=== PATIENT | female | born 1935 | race Caucasian/White ===

== ENCOUNTER 2016-11-12 15:10 | Outpatient (CLI) | payer MEDICARE, OTHER | END 2016-11-12 15:11 | DX: D50.9 Iron deficiency anemia, unspecified (principal); L65.9 Nonscarring hair loss, unspecified; E03.9 Hypothyroidism, unspecified ==

== ENCOUNTER 2021-02-10 11:38 | Outpatient (CLI) | payer MEDICARE, OTHER | END 2021-02-10 11:39 | disposition critical access hospital (66) | LOC: EMS 11:38 | DX: R53.1 Weakness (principal); R06.02 Shortness of breath | CPT/HCPCS: A0425; A0429 ==

== ENCOUNTER 2021-02-10 12:01 | Emergency (ER) | payer MEDICARE, OTHER ==
--- OUTSIDE RECORDS SUMMARY | 2021-02-10 12:42 | EXTERNAL MEDICAL SUMMARY RPT | Continuity of Care Document ---
:1935 Demographics Phone Unavailable Preferred Language Mauritian Marital Status Unknown Latter Day Affiliation Unknown Race Unknown Ethnic Group Unknown Author Organization [facility] Address [address] [place] [address] Phone Care Team Providers Name Role Phone Scheidt Unavailable Unavailable Procedures date description facility 20210129 [facility] Vital Signs date measurement value source 20210129 weight_standard 103.99 lb 20210129 weight_metric 47.17 kg 20210129 temperature_standard 97.7 F 20210129 temperature_metric 36.5 C 20210129 respiration_rate 16 /min 20210129 heart_rate 77 /min 20210129 BP_systolic 188 mm[Hg] 20210129 BP_diastolic 70 mm[Hg]
[2021-02-10 13:33] LABS: BASOPHILS # (AUTO) 0.1 10^3/uL (0.0-0.1); BASOPHILS % (AUTO) 1.1 %; EOSINOPHILS # (AUTO) 0.2 10^3/uL (0.0-0.7); EOSINOPHILS % (AUTO) 2.8 %; HGB - HEMOGLOBIN 9.9 g/dL (12.0-16.0); LYMPHOCYTES # (AUTO) 1.1 10^3/uL (1.5-3.5); LYMPHOCYTES % (AUTO) 19.6 %; MEAN CORPUSCULAR HEMOGLOBIN 28.7 pg (27.0-31.0); MEAN CORPUSCULAR VOLUME 95.7 fL (81.0-99.0); MEAN PLATELET VOLUME 8.6 fL (7.9-10.8); MONOCYTES # (AUTO) 0.5 10^3/uL (0.0-1.0); NEUTROPHILS # (AUTO) 3.8 10^3/uL (1.5-6.6); NEUTROPHILS % (AUTO) 67.3 %; PLT - PLATELET COUNT 323 10^3/uL (130-450); RED BLOOD COUNT 3.45 10^6/uL (4.20-5.40); RED CELL DISTRIBUTION WIDTH 13.9 % (12.0-15.0); WHITE BLOOD COUNT 5.7 x10^3/uL (4.8-10.8)
[2021-02-10] MEDS ORDERED: oxyCODONE 5 MG TABLET PO STA (13:33)
--- NOTE | 2021-02-10 13:35 | ED Physician Documentation ---
PD HPI DYSPNEA - Stated complaint Stated Complaint: SOA/WEAKNESS - Chief complaint Chief Complaint: Resp - History obtained from History obtained from: Patient, Family - History of Present Illness Timing - onset: How many days ago (3) Timing - onset during: Rest Timing - duration: Days (3) Timing - details: Gradual onset Pain level max: 0 Pain level now: 0 Improved by: Rest Worsened by: Exertion Associated symptoms: Cough (dry). No: Fever, Hemoptysis, Wheezing, Chest pain / discomfort, Palpitations, Diaphoresis, Bilateral edema - Additional information Additional information: Patient is an 85-year-old female who presents to the emergency department stating that she has felt generally weak for the past 3 days. She moved into a new care facility this week. She is worse with walking, better with rest. Lynn short of breath today. States her ankles are more swollen than usual. History of an AK 1 year ago at [place] in [place]. She states she has had a mild cough. Has had both Covid vaccinations. No fevers. No chills. No abdominal pain. No nausea, vomiting, diarrhea. No chest pain. No urinary symptoms. Does occasionally have urinary incontinence. She is here with her POA. She states that she has chronic back pain which is unchanged. No history of COPD or asthma Review of Systems Ten Systems: 10 systems reviewed and negative Constitutional: denies: Fever, Chills Nose: denies: Rhinorrhea / runny nose, Congestion Throat: denies: Sore throat Cardiac: denies: Chest pain / pressure, Palpitations, Calf pain GI: denies: Nausea, Vomiting, Diarrhea Skin: denies: Rash Musculoskeletal: reports: Back pain (chronic and unchanged). denies: Neck pain Neurologic: denies: Headache PD PAST MEDICAL HISTORY - Past Medical History Past Medical History: Yes Cardiovascular: Hypertension Respiratory: None Neuro: None Endocrine/Autoimmune: None GI: None SUPERVISOR DATA PROCESSING: None : None HEENT: None Psych: Depression, Anxiety Musculoskeletal: Osteoarthritis, Osteoporosis, Osteopenia, Fatigue, Scoliosis, Chronic back pain Derm: None - Past Surgical History Past Surgical History: Yes Ortho: Spine surgery, Other - Present Medications Home Medications: Ambulatory Orders Medication Instructions Recorded Confirmed Liothyronine Sodium [Triostat] 10 mcg PO DAILY 01/02/15 02/17/16 lisinopriL [Lisinopril] 10 mg PO DAILY 01/02/15 02/17/16 Levothyroxine [Synthroid] 50 mcg ORAL DAILY 07/30/15 02/17/16 oxyCODONE [Roxicodone] 7.5 mg ORAL Q4H PRN 07/30/15 02/17/16 - Allergies Allergies/Adverse Reactions: Allergies Allergy/AdvReac Type Severity Reaction Status Date / Time carvedilol Allergy Unknown Verified 02/10/21 12:12 celecoxib [From Celebrex] Allergy Emesis Verified 02/17/16 09:34 erythromycin base Allergy Emesis Verified 02/17/16 09:34 sucralfate [From Carafate] Allergy Unknown Verified 02/10/21 12:12 trazodone Allergy Unknown Verified 02/10/21 12:12 - Social History Does the pt smoke?: No Smoking Status: Never smoker Does the pt drink ETOH?: No Does the pt have substance abuse?: No - Immunizations Immunizations are current?: No Immunizations: TDAP >10years/unknown, No immun - POLST Patient has POLST: No PD ED PE NORMAL - Vitals Vital signs reviewed: Yes - General General: Alert and oriented X 3, No acute distress, Well developed/nourished - HEENT HEENT: Atraumatic, PERRL, Ears normal, Moist mucous membranes, Pharynx benign - Neck Neck: Supple, no meningeal sign, No bony TTP - Cardiac Cardiac: RRR, Other (harsh systolic murmur) - Respiratory Respiratory: No respiratory distress, Clear bilaterally - Abdomen Abdomen: Soft, Non tender, Non distended - Back Back: No CVA TTP, No spinal TTP - Derm Derm: Warm and dry, No rash - Extremities Extremities: No tenderness to palpate, No calf tenderness / cord, Other (trace edema B LE) - Neuro Neuro: Alert and oriented X 3 - Psych Psych: Normal mood, Normal affect Results - Vitals Vitals: Vital Signs - 24 hr 02/10/21 02/10/21 12:07 15:54 Temperature 36.7 C 36.6 C Heart Rate 66 64 Respiratory 18 16 Rate Blood Pressure 164/84 H 148/86 H O2 Saturation 97 98 Oxygen O2 Source Room air - EKG (time done) 1205 Rate: Rate (enter#) (66) Rhythm: NSR [place]: Normal QRS: LVH Ischemia: Q waves (III, aVF), Other (LVH with repol) - Labs Labs: Laboratory Tests 02/10/21 02/10/21 02/10/21 12:24 13:24 13:24 WBC 5.7 RBC 3.45 L Hgb 9.9 L Hct 33.0 L MCV 95.7 MCH 28.7 MCHC 30.0 L RDW 13.9 Plt Count 323 MPV 8.6 Neut # (Auto) 3.8 Lymph # (Auto) 1.1 L [place] # (Auto) 0.5 Eos # (Auto) 0.2 Baso # (Auto) 0.1 Absolute Nucleated RBC 0.00 Nucleated RBC % 0.0 Sodium 137 Potassium 4.0 Chloride 93 L Carbon Dioxide 36 H Anion Gap 8.0 BUN 20 Creatinine 0.6 Estimated GFR (MDRD) 95 Glucose 120 H Calcium 9.9 Total Bilirubin 0.6 AST 22 ALT 27 Alkaline Phosphatase 87 Troponin I High Sens B-Natriuretic Peptide Total Protein 6.2 L Albumin 3.7 Globulin 2.5 Albumin/Globulin Ratio 1.5 Urine Color YELLOW Urine Clarity CLEAR Urine pH 8.0 H Ur Specific [place] 1.020 Urine Protein NEGATIVE Urine Glucose (UA) NEGATIVE Urine Ketones NEGATIVE Urine Occult Blood NEGATIVE Urine Nitrite NEGATIVE Urine Bilirubin NEGATIVE Urine Urobilinogen 0.2 (NORMAL) Ur Leukocyte Esterase NEGATIVE Ur Microscopic Review NOT INDICATED Urine Culture Comments NOT INDICATED 02/10/21 02/10/21 13:24 13:24 WBC RBC Hgb Hct MCV MCH MCHC RDW Plt Count MPV Neut # (Auto) Lymph # (Auto) [place] # (Auto) Eos # (Auto) Baso # (Auto) Absolute Nucleated RBC Nucleated RBC % Sodium Potassium Chloride Carbon Dioxide Anion Gap BUN Creatinine Estimated GFR (MDRD) Glucose Calcium Total Bilirubin AST ALT Alkaline Phosphatase Troponin I High Sens 7.7 B-Natriuretic Peptide 480 H Total Protein Albumin Globulin Albumin/Globulin Ratio Urine Color Urine Clarity Urine pH Ur Specific [place] Urine Protein Urine Glucose (UA) Urine Ketones Urine Occult Blood Urine Nitrite Urine Bilirubin Urine Urobilinogen Ur Leukocyte Esterase Ur Microscopic Review Urine Culture Comments - Rads (name of study) cxr Radiology: Prelim report reviewed, EMP read contemporaneously, See rad report (Slightly low lung volumes without evidence of an acute cardiopulmonary abnormality. ) PD MEDICAL DECISION MAKING - ED course Complexity details: reviewed results, re-evaluated patient, considered differential, d/w patient ED course: 85-year-old female with weakness. Does have a mild anemia, not enough to transfuse at this point. I do not have baseline blood work for her as she recently moved here from [place]. She does not know her normal blood work. We will have her recheck her hemoglobin with her doctor. The patient also did not finish her cardiac rehab from her AK last year because of Covid. Recommend that she restart physical therapy and rehab to increase her strength. She states that that did help when she felt like this last year. No significant lab abnormalities other than a almost 40-1 BUN to creatinine ratio, therefore IV fluids were given. Her BNP is mildly elevated as well, but no pulmonary edema and no significant swelling in the legs. Unknown what her baseline BNP is. No hypoxia. No respiratory distress. We will have her follow-up with her doctor for further care. Normal urinalysis. Patient counseled regarding signs and symptoms for which I believe and urgent re-evaluation would be necessary. Patient with good understanding of and agreement to plan and is comfortable going home at this time This document was made in part using voice recognition software. While efforts are made to proofread this document, sound alike and grammatical errors may o ccur. Departure - Departure Disposition: 01 Home, Self Care Clinical Impression: Weakness, Muscular deconditioning Condition: Good Instructions: ED Weakness UKO Follow-Up: AUNG DE LA FUENTE MD [Physician No Access] - Comments: It is recommended that you go back to physical therapy, you may need to start with water therapy. You are likely getting weaker from your deconditioning. Physical therapy will likely help this. Return if you worsen.
[2021-02-10 13:52] LABS: ALBUMIN 3.7 g/dL (3.2-5.5); ALBUMIN/GLOBULIN RATIO 1.5 (1.0-2.2); BILIRUBIN,TOTAL 0.6 mg/dL (0.2-1.0); CALCIUM 9.9 mg/dL (8.5-10.3); CREATININE 0.6 mg/dL (0.4-1.0); TOTAL PROTEIN 6.2 g/dL (6.7-8.2)
--- NOTE | 2021-02-10 13:59 | XRAY Report ---
PROCEDURE: Chest 1 View X-Ray INDICATIONS: dyspnea TECHNIQUE: One view of the chest was acquired. COMPARISON: None available at time of dictation FINDINGS: Surgical changes and devices: Overlying EKG wires. Lungs and pleura: The lungs are slightly hypoinflated causing prominence of bronchovascular markings. No focal consolidation, pneumothorax, or pleural effusion. Mediastinum: Mediastinal contours appear normal. Heart size is normal. Opacity of the inferior med iastinum likely representing hiatal hernia. Bones and chest wall: Remote left-sided rib fractures. Likely postsurgical changes of the lower thora cic vertebral body. Degenerative changes of the shoulders and spine. No acute osseous abnormality. Ov erlying soft tissues appear unremarkable. IMPRESSION: Slightly low lung volumes without evidence of an acute cardiopulmonary abnormality. Reviewed by: Abiodun Benito DO on 02/10/2021 12:57 PM PING Approved by: Abiodun Benito DO on 02/10/2021 12:57 PM PING Station ID: [id number]
[2021-02-10] MEDS ORDERED: SODIUM CHLORIDE 0.9% 1,000 ML IV STA (14:05)
[2021-02-10] MEDS ORDERED: SODIUM CHLORIDE 0.9% 500 ML IV STA (14:05)
[2021-02-10 14:41] LABS: BILIRUBIN,URINE NEGATIVE (NEGATIVE); GLUCOSE, URINE (UA) NEGATIVE (NEGATIVE); KETONES,URINE (UA) NEGATIVE (NEGATIVE); LEUKOCYTE ESTERASE, URINE NEGATIVE (NEGATIVE); NITRITE,URINE NEGATIVE (NEGATIVE); OCCULT BLOOD,URINE NEGATIVE (NEGATIVE); PROTEIN,URINE NEGATIVE (NEGATIVE); UROBILINOGEN,URINE 0.2 (NORMAL) E.U./dL (NORMAL)
[2021-02-10 14:47] LABS: CLARITY,URINE CLEAR (CLEAR)
[2021-02-10 15:55] VITALS: BP 148/86
== END 2021-02-10 16:01 | disposition home or self-care (01) ==
LOC: EDUNIT# → EDBD → ED 12:01
DX: R53.1 Weakness (principal); R06.02 Shortness of breath; R05 Cough; D64.9 Anemia, unspecified; R79.89 Other specified abnormal findings of blood chemistry; Z20.822 Contact with and (suspected) exposure to COVID-19; I10 Essential (primary) hypertension; I25.2 Old myocardial infarction; R01.1 Cardiac murmur, unspecified; M54.9 Dorsalgia, unspecified; G89.29 Other chronic pain
CPT/HCPCS: 36415; 71045; 80053; 81003; 83880; 84484; 85025; 93005; 99284; A9270; U0004; 81001; 87086

== ENCOUNTER 2021-03-17 23:52 | Outpatient (CLI) | payer MEDICARE, OTHER | END 2021-03-17 23:53 | disposition critical access hospital (66) | LOC: EMS 23:52 | DX: Z04.3 Encounter for examination and observation following other accident (principal); M54.5 Low back pain | CPT/HCPCS: A0425; A0429 ==

== ENCOUNTER 2021-03-18 00:10 | Emergency (ER) | payer MEDICARE, OTHER ==
--- NOTE | 2021-03-18 00:10 | ED Physician Documentation ---
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 No: LOC, AMS, Neck pain, Nausea / vomiting Contributing factors: No: Anticoagulated Recently seen: Emergency Dept (T+R last month for generalized weakness) - Additional information Additional information: BIBA after fall at assisted living facility. Patient says she lost her balance while reaching for something, causing her to fall from sitting position. She says she also fell earlier today when she lost her balance while standing. With tonight's fall, she struck her head against a dresser although she denies LOC, denies LEIVA. She denies having any pain on my HPI/ROS Review of Systems Eyes: denies: Loss of vision, Decreased vision Cardiac: reports: Reviewed and negative Respiratory: reports: Reviewed and negative GI: reports: Reviewed and negative : denies: Dysuria, Frequency Musculoskeletal: reports: Reviewed and negative Neurologic: reports: Generalized weakness, Head injury. denies: Focal weakness, Numbness, Altered mental status, Headache, LOC PD PAST MEDICAL HISTORY - Past Medical History Past Medical History: Yes Cardiovascular: Hypertension, Coronary artery disease, [place] Endocrine/Autoimmune: HyPOthyroidism GI: GERD - Present Medications Home Medications: Ambulatory Orders Medication Instructions Recorded Confirmed Aspirin Chewable [[place] 81 mg PO DAILY 03/18/21 03/18/21 Aspirin] Atorvastatin Calcium 40 mg PO DAILY 03/18/21 03/18/21 Bisacodyl Supp [Dulcolax Supp] 10 mg OK DAILY PRN 03/18/21 03/18/21 Cholecalciferol [Vitamin D3] 1 cap PO DAILY 03/18/21 03/18/21 DULoxetine [Cymbalta] 30 mg PO DAILY 03/18/21 03/18/21 Esomeprazole Magnesium [Nexium 20 mg PO DAILY 03/18/21 03/18/21 24Hr] Levothyroxine Sodium 50 mcg PO DAILY 03/18/21 03/18/21 [Levothyroxine] Liothyronine [Cytomel] 5 mg PO DAILY 03/18/21 03/18/21 Mirtazapine [Remeron] 15 mg PO DAILY 03/18/21 03/18/21 Oxycodone HCl/Acetaminophen 1 tab PO Q6HR PRN 03/18/21 03/18/21 [Percocet 5-325 mg Tablet] Sennosides/Docusate Sodium [Senna 1 tab PO BID PRN 03/18/21 03/18/21 Plus 8.6-50 mg Tablet] - Allergies Allergies/Adverse Reactions: Allergies Allergy/AdvReac Type Severity Reaction Status Date / Time carvedilol Allergy Unknown Verified 03/18/21 00:21 celecoxib [From Celebrex] Allergy Emesis Verified 03/18/21 00:21 erythromycin base Allergy Emesis Verified 03/18/21 00:21 sucralfate [From Carafate] Allergy Unknown Verified 03/18/21 00:21 trazodone Allergy Unknown Verified 03/18/21 00:21 PD ED PE NORMAL - Vitals Vital signs reviewed: Yes - General General: Alert and oriented X 3, No acute distress, Well developed/nourished, Other (speaks very quietly ) - HEENT HEENT: PERRL, Other (tacky/pasty mucous membranes) - Neck Neck: No bony TTP - Cardiac Cardiac: RRR - Respiratory Respiratory: No respiratory distress, Clear bilaterally - Abdomen Abdomen: Soft, Non tender - Back Back: No spinal TTP - Derm Derm: Normal color, Warm and dry - Extremities Extremities: No deformity, No tenderness to palpate, No edema - Neuro Neuro: Alert and oriented X 3, 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, No motor deficit, No sensory deficit, Normal speech Eye Opening: Spontaneous Motor: Obeys Commands Verbal: Oriented GCS Score: 15 PD ED PE EXPANDED - HEENT HEENT Visual: 1 - bruising (hematoma), tenderness - Cardiac Cardiac: Murmur Present (3/6 DINO right 2nd ICS) Results - Vitals Vitals: Vital Signs - 24 hr 03/18/21 03/18/21 03/18/21 00:10 02:17 04:12 Temperature 36.8 C Heart Rate 70 71 64 Respiratory 18 18 18 Rate Blood Pressure 128/73 138/63 H 134/68 H O2 Saturation 94 95 95 03/18/21 03/18/21 03/18/21 07:44 09:11 12:33 Temperature 36.9 C Heart Rate 72 64 68 Respiratory 18 14 18 Rate Blood Pressure 138/60 H 126/56 L 150/67 H O2 Saturation 94 94 100 Oxygen O2 Source Room air - Labs Labs: Laboratory Tests 03/18/21 03/18/21 03/18/21 01:11 01:11 01:11 WBC 14.0 H RBC 4.49 Hgb 12.8 Hct 40.5 MCV 90.2 MCH 28.5 MCHC 31.6 L RDW 13.1 Plt Count 328 MPV 8.6 Neut # (Auto) 12.4 H Lymph # (Auto) 0.7 L [place] # (Auto) 0.7 Eos # (Auto) 0.0 Baso # (Auto) 0.1 Absolute Nucleated RBC 0.00 Nucleated RBC % 0.0 Sodium 128 L Potassium 3.2 L Chloride 80 L* Carbon Dioxide 31 Anion Gap 17.0 H BUN 36 H Creatinine 0.7 Estimated GFR (MDRD) 80 L Glucose 70 Calcium 9.3 TSH 0.50 Urine Color Urine Clarity Urine pH Ur Specific [place] Urine Protein Urine Glucose (UA) Urine Ketones Urine Occult Blood Urine Nitrite Urine Bilirubin Urine Urobilinogen Ur Leukocyte Esterase Ur Microscopic Review Urine Culture Comments 03/18/21 04:30 WBC RBC Hgb Hct MCV MCH MCHC RDW Plt Count MPV Neut # (Auto) Lymph # (Auto) [place] # (Auto) Eos # (Auto) Baso # (Auto) Absolute Nucleated RBC Nucleated RBC % Sodium Potassium Chloride Carbon Dioxide Anion Gap BUN Creatinine Estimated GFR (MDRD) Glucose Calcium TSH Urine Color YELLOW Urine Clarity CLEAR Urine pH 6.0 Ur Specific [place] 1.020 Urine Protein NEGATIVE Urine Glucose (UA) NEGATIVE Urine Ketones 40 H Urine Occult Blood NEGATIVE Urine Nitrite NEGATIVE Urine Bilirubin NEGATIVE Urine Urobilinogen 0.2 (NORMAL) Ur Leukocyte Esterase NEGATIVE Ur Microscopic Review NOT INDICATED Urine Culture Comments NOT INDICATED - Rads (name of study) CT head Radiology: Prelim report reviewed, See rad report right ribs w/ PA chest Radiology: Prelim report reviewed, See rad report PD MEDICAL DECISION MAKING - ED course Complexity details: reviewed old records, reviewed results, re-evaluated patient, considered differential, d/w patient ED course: during ED stay, patient developed right chest wall pain, reproducible with palpation right anterolateral chest wall; xrays do not reveal acute fracture. Lab tests demonstrate hyponatremia, hypochloremia ,hypokalemia, and high bun/creatinine ratio; she is given 1 liter NS bolus. Her POLST form indicates DNR/comfort measures only, and this is dated 02/27/2021. I reviewed the results with patient and she says she is comfortable being discharged back to [facility] although she says she continues to feel generalized weakness. I recommended that she have a social work consult to determine whether she might benefit from placement at higher level of care and she is amenable to this. I also spoke with patient's POA (Anastasiapili Baker); she will be coming to ED and is willing to take patient back to [facility] but would be interested in having social work consult; Anastasia expresses concerns regarding patient's intermittent refusal to take many/most of her medications and erratic PO intake (both solids and liquids). Care of patient turned over to Dr. Pedraza at end of my shift pending SW consult
[2021-03-18 01:17] LABS: BASOPHILS # (AUTO) 0.1 10^3/uL (0.0-0.1); BASOPHILS % (AUTO) 0.4 %; EOSINOPHILS % (AUTO) 0.3 %; HCT - HEMATOCRIT 40.5 % (37.0-47.0); HGB - HEMOGLOBIN 12.8 g/dL (12.0-16.0); LYMPHOCYTES # (AUTO) 0.7 10^3/uL (1.5-3.5); LYMPHOCYTES % (AUTO) 5.2 %; MEAN CORPUSCULAR HEMOGLOBIN 28.5 pg (27.0-31.0); MEAN CORPUSCULAR HGB CONC 31.6 g/dL (32.0-36.0); MEAN CORPUSCULAR VOLUME 90.2 fL (81.0-99.0); MEAN PLATELET VOLUME 8.6 fL (7.9-10.8); MONOCYTES # (AUTO) 0.7 10^3/uL (0.0-1.0); MONOCYTES % (AUTO) 4.8 %; NEUTROPHILS # (AUTO) 12.4 10^3/uL (1.5-6.6); NEUTROPHILS % (AUTO) 88.9 %; PLT - PLATELET COUNT 328 10^3/uL (130-450); RED BLOOD COUNT 4.49 10^6/uL (4.20-5.40); RED CELL DISTRIBUTION WIDTH 13.1 % (12.0-15.0)
[2021-03-18 01:27] LABS: CALCIUM 9.3 mg/dL (8.5-10.3); CREATININE 0.7 mg/dL (0.4-1.0); POTASSIUM 3.2 mmol/L (3.5-5.0)
[2021-03-18] MEDS ORDERED: SODIUM CHLORIDE 0.9% 1,000 ML IV STA (01:31)
[2021-03-18 04:44] LABS: BILIRUBIN,URINE NEGATIVE (NEGATIVE); GLUCOSE, URINE (UA) NEGATIVE (NEGATIVE); KETONES,URINE (UA) 40 mg/dL (NEGATIVE); LEUKOCYTE ESTERASE, URINE NEGATIVE (NEGATIVE); NITRITE,URINE NEGATIVE (NEGATIVE); OCCULT BLOOD,URINE NEGATIVE (NEGATIVE); PROTEIN,URINE NEGATIVE (NEGATIVE); UROBILINOGEN,URINE 0.2 (NORMAL) E.U./dL (NORMAL)
[2021-03-18 04:46] LABS: CLARITY,URINE CLEAR (CLEAR)
--- NOTE | 2021-03-18 08:31 | XRAY Report ---
PROCEDURE: Ribs w/PA Chest RT INDICATIONS: fall, chest wall pain TECHNIQUE: 2 views of the right ribs were acquired, along with a single view chest. COMPARISON: Chest 1 view dated 02/10/2021 FINDINGS: Surgical changes and devices: None. Bones and chest wall: Displaced right rib fractures or dislocations. No suspicious bony lesions. Old healed left rib fractures with associated rib deformities are noted involving the left eighth, ninth , and 10th ribs. Numerous chronic compression fractures are noted, including previous cement fixation of 3 separate levels. Overlying soft tissues appear unremarkable. Lungs and pleura: No pleural effusions or pneumothorax. Lungs appear clear. Mediastinum: Mediastinal contours appear normal. Heart size is normal. IMPRESSION: 1. No displaced right rib fracture identified. 2. Old left rib fractures. 3. Severe osteoporosis with numerous chronic thoracic and lumbar compression fractures A preliminary report with the above findings was provided at the time of the study by [facility]. Reviewed by: Jesus Manuel Bravo MD on 03/18/2021 7:30 AM PING Approved by: Jesus Manuel Bravo MD on 03/18/2021 7:30 AM PING Station ID: [id number]
--- NOTE | 2021-03-18 08:41 | CT Report ---
PROCEDURE: HEAD WO INDICATIONS: fall, head injury TECHNIQUE: Noncontrast 4.5 mm thick angled axial sections acquired from the foramen magnum to the vertex. For r adiation dose reduction, the following was used: automated exposure control, adjustment of mA and/or kV according to patient size. COMPARISON: None. FINDINGS: Image quality: Excellent. CSF spaces: Basal cisterns are patent. No extra-axial fluid collections. Ventricles are normal in size and shape. Brain: No midline shift. No intracranial masses or hemorrhage. Nguyen-white matter interface is norm al. Age-related volume loss and small vessel ischemic change. Dense calcifications of the left verteb ral artery. Bilateral cavernous carotid calcifications. Skull and face: Calvarium and visualized facial bones are intact, without suspicious lesions. Small right parietal subgaleal hematoma. Sinuses: Visualized sinuses and mastoids are clear. IMPRESSION: 1. ASCVD 2. Age-related volume loss and small vessel ischemic change. 3. No evidence of significant intracranial sequelae of acute trauma. 4. Small right parietal subgaleal hematoma. A preliminary report with the above findings was provided at the time of the study by [facility]. Reviewed by: Jesus Manuel Bravo MD on 03/18/2021 7:40 AM PING Approved by: Jesus Manuel Bravo MD on 03/18/2021 7:40 AM PING Station ID: [id number]
[2021-03-18 12:33] VITALS: BP 150/67
--- NOTE | 2021-04-07 18:52 | ED Physician Documentation ---
ED Addendum - Addendum Addendum: 04/07/21 18:50 Patient endorsed to me by Dr. Long with medical workup complete, awaiting SW consult to determine if she can return to her living facility. She was evaluated by our SW Francisca who d/w her DPOA. Patient able to transfer from bed to wheelchair and will be discharged with increased assistance. Impression 1. fall
== END 2021-03-18 13:00 | disposition home or self-care (01) ==
LOC: EDUNIT# → ED 00:10
DX: S09.90XA Unspecified injury of head, initial encounter (principal); S00.03XA Contusion of scalp, initial encounter; W01.190A Fall on same level from slipping, tripping and stumbling with subsequent striking against furniture, initial encounter; Y92.099 Unspecified place in other non-institutional residence as the place of occurrence of the external cause; R53.1 Weakness; Z91.81 History of falling; R07.89 Other chest pain; R01.1 Cardiac murmur, unspecified; E87.6 Hypokalemia; E87.1 Hypo-osmolality and hyponatremia; E87.8 Other disorders of electrolyte and fluid balance, not elsewhere classified; M81.0 Age-related osteoporosis without current pathological fracture; M48.56XA Collapsed vertebra, not elsewhere classified, lumbar region, initial encounter for fracture; M48.54XA Collapsed vertebra, not elsewhere classified, thoracic region, initial encounter for fracture; I10 Essential (primary) hypertension; Z79.82 Long term (current) use of aspirin; Z66 Do not resuscitate
CPT/HCPCS: 36415; 80048; 81001; 81003; 84443; 85025; 87086; 96360; 99282

== ENCOUNTER 2021-04-01 16:44 | Outpatient (CLI) | payer MEDICARE, OTHER | END 2021-04-01 16:45 | disposition critical access hospital (66) | LOC: EMS 16:44 | DX: R63.8 Other symptoms and signs concerning food and fluid intake (principal) | CPT/HCPCS: A0425; A0429 ==

== ENCOUNTER 2021-04-01 17:16 | Emergency (ER) | payer MEDICARE, OTHER ==
--- NOTE | 2021-04-01 18:10 | ED Physician Documentation ---
History of Present Illness - Stated complaint Stated Complaint: FAILURE TO THRIVE - Chief complaint Chief Complaint: General - Additonal information Additional information: 86-year-old female who resides at [facility] has decided to stop eating her meals taking her meds and drinking. Her primary care provider requested she come to the ER for evaluation of suicidal ideation. Patient reports to me that she does not want to be in the ER. She is declining IV blood draws or any instrumentation. She is alert, well-appearing and oriented. She does not have dementia and has the capacity to make this decision. Patient states that she has stopped taking her medications and stopped eating and drinking. She has her reasons but she will not discuss them with this provider. An advanced directive with her shows that she is a DNR. Past medical history includes but not limited to congestive heart failure, chronic pain, coronary artery disease, acid reflux, hypertension, hypothyroidism, previous NSTEMI, osteoporosis Meds: reviewed in full Review of Systems Constitutional: denies: Fever, Chills Nose: reports: Reviewed and negative Throat: reports: Reviewed and negative Cardiac: reports: Reviewed and negative Respiratory: reports: Reviewed and negative GI: reports: Reviewed and negative : reports: Reviewed and negative Skin: denies: Rash, Lesions Musculoskeletal: reports: Neck pain, Back pain, Other (Chronic back and neck pain) Neurologic: reports: Generalized weakness. denies: Focal weakness, Numbness, Difficulty speaking, Confused, Altered mental status, Headache, Head injury PD PAST MEDICAL HISTORY - Past Medical History Past Medical History: Yes Cardiovascular: Hypertension, Coronary artery disease, [place] Respiratory: Shortness of breath Neuro: None Endocrine/Autoimmune: HyPOthyroidism GI: GERD MANAGER PRODUCE: None : None HEENT: None Psych: Depression, Anxiety, Other Musculoskeletal: Osteoarthritis, Osteoporosis, Osteopenia, Fatigue, Scoliosis, Chronic back pain Derm: None - Past Surgical History Past Surgical History: Yes Ortho: Spine surgery, Other - Present Medications Home Medications: Ambulatory Orders Medication Instructions Recorded Confirmed Aspirin Chewable [[place] 81 mg PO DAILY 03/18/21 03/18/21 Aspirin] Atorvastatin Calcium 40 mg PO DAILY 03/18/21 03/18/21 Bisacodyl Supp [Dulcolax Supp] 10 mg [place] DAILY PRN 03/18/21 03/18/21 Cholecalciferol [Vitamin D3] 1 cap PO DAILY 03/18/21 03/18/21 DULoxetine [Cymbalta] 30 mg PO DAILY 03/18/21 03/18/21 Esomeprazole Magnesium [Nexium 20 mg PO DAILY 03/18/21 03/18/21 24Hr] Levothyroxine Sodium 50 mcg PO DAILY 03/18/21 03/18/21 [Levothyroxine] Liothyronine [Cytomel] 5 mg PO DAILY 03/18/21 03/18/21 Mirtazapine [Remeron] 15 mg PO DAILY 03/18/21 03/18/21 Oxycodone HCl/Acetaminophen 1 tab PO Q6HR PRN 03/18/21 03/18/21 [Percocet 5-325 mg Tablet] Sennosides/Docusate Sodium [Senna 1 tab PO BID PRN 03/18/21 03/18/21 Plus 8.6-50 mg Tablet] - Allergies Allergies/Adverse Reactions: Allergies Allergy/AdvReac Type Severity Reaction Status Date / Time carvedilol Allergy Unknown Verified 04/01/21 17:32 celecoxib [From Celebrex] Allergy Emesis Verified 04/01/21 17:32 erythromycin base Allergy Emesis Verified 04/01/21 17:32 sucralfate [From Carafate] Allergy Unknown Verified 04/01/21 17:32 trazodone Allergy Unknown Verified 04/01/21 17:32 - Social History Does the pt smoke?: No Smoking Status: Never smoker Does the pt drink ETOH?: No Does the pt have substance abuse?: No - Immunizations Immunizations are current?: No Immunizations: TDAP >10years/unknown, No immun - POLST Patient has POLST: Yes PD ED PE NORMAL - General General: Alert and oriented X 3, No acute distress, Well developed/nourished - HEENT HEENT: Atraumatic - Neck Neck: Supple, no meningeal sign, No adenopathy - Cardiac Cardiac: RRR - Respiratory Respiratory: No respiratory distress, Clear bilaterally - Abdomen Abdomen: Normal bowel sounds, Soft - Back Back: No CVA TTP, No spinal TTP - Derm Derm: Normal color, Warm and dry, No rash - Extremities Extremities: No deformity, No tenderness to palpate - Neuro Neuro: Alert and oriented X 3, senior it assistant 2-12 intact, No motor deficit Eye Opening: Spontaneous Motor: Obeys Commands Verbal: Oriented GCS Score: 15 - Psych Psych: Other (Patient is alert well-appearing and oriented x4. She does not express thoughts to harm herself or others. She expresses to me that she no longer wishes to eat or drink. And she has her reasons.) Results - Vitals Vitals: Vital Signs - 24 hr 04/01/21 17:32 Temperature 36.5 C Heart Rate 78 Respiratory 16 Rate Blood Pressure 158/96 H O2 Saturation 99 Oxygen O2 Source Room air PD MEDICAL DECISION MAKING - ED course Complexity details: d/w patient ED course: 86-year-old female was sent to the emergency department to obtain either a psychiatric hold or obtain a hospice consult as she has recently decided to stop eating and take her medications at [facility]. The patient is not demented is quite well-appearing and alert. She does have the capacity to make the decision not to eat, drink or take her medications. A psychiatric hold is not appropriate at this time. The emergency department is also unable to obtain a hospice consult for the patient. In discussion with the patient she has agreed to return to [facility] if they can provide a hospice consult this week. she has agreed to eat and drink until then I did speak with patient's primary care provider. She reports that the patient has vacillated between wanting to get better and wanting hospice consult but has thus far refused hospice. In speaking with the patient she is agreeable to return to [facility] to obtain a hospice consult on Friday. Impression: Refusal to eat Departure - Departure Condition: Stable Record reviewed to determine appropriate education?: Yes Follow-Up: Kierra Prieto ARNP [Provider Admit Priv/Credential] - Comments: Laurel I wish you well in your journey. The facility where you are staying asked you to come to the ER to obtain a psychiatric or alternatively a hospice consult. They are concerned because you decided to stop eating or take your medications. You do have the capacity to make your own decisions. The decision to stop eating or not take your medications can end your life. In order for you to remain at [facility] they request that you eat, drink and take your medications. If it is your desire to not live any longer than you have with medical support they are requesting that you agree to a hospice or a palliative care consult. Your primary provider should obtain a palliative care or hospice consult. I have given you the phone number of a palliative care provider that may be able to help you. Please call them on Friday to discuss this.
[2021-04-01 19:36] VITALS: BP 138/88
== END 2021-04-01 19:33 | disposition home or self-care (01) ==
LOC: EDUNIT# → EDBD → ED 17:16
DX: R63.8 Other symptoms and signs concerning food and fluid intake (principal); Z66 Do not resuscitate
CPT/HCPCS: 99282; 99283

== ENCOUNTER 2021-04-01 19:38 | Outpatient (CLI) | payer MEDICARE, OTHER | END 2021-04-01 19:39 | disposition home or self-care (01) | LOC: EMS 19:38 | PROVIDERS: ATTEND Registered Nurse | DX: I50.9 Heart failure, unspecified (principal); G89.29 Other chronic pain; Z74.01 Bed confinement status | CPT/HCPCS: A0425; A0428 ==

== ENCOUNTER 2021-04-05 13:30 | Outpatient (CLI) | payer MEDICARE, OTHER | END 2021-04-05 13:31 | disposition critical access hospital (66) | LOC: EMS 13:30 | DX: R09.89 Other specified symptoms and signs involving the circulatory and respiratory systems (principal) | CPT/HCPCS: A0425; A0429 ==

== ENCOUNTER 2021-04-05 13:50 | Inpatient (IN) | payer MEDICARE, OTHER ==
--- NOTE | 2021-04-05 14:19 | ED Physician Documentation ---
History of Present Illness - Stated complaint Stated Complaint: FBO - History obtained from History obtained from: Patient, EMS - Additonal information Additional information: 86-year-old woman with history of dementia has been dwindling yesterday, most recently seen by one of my partners for not eating or drinking 4 days ago and she declined work-up at that time. Today was eating lunch which consisted of fish and potatoes reportedly and had a coughing spell and may be some vomiting. Concern for aspiration. Still coughing on and off. Noted to be significantly hypoxic on room air prior to arrival down into the high 70s. Review of Systems Ten Systems: 10 systems reviewed and negative Constitutional: denies: Fever, Chills Nose: reports: Reviewed and negative Throat: reports: Reviewed and negative Cardiac: reports: Reviewed and negative PD PAST MEDICAL HISTORY - Past Medical History Cardiovascular: Hypertension, Coronary artery disease, [place] Respiratory: Shortness of breath Neuro: None Endocrine/Autoimmune: HyPOthyroidism GI: GERD PACKING CHECKER: None : None HEENT: None Psych: Depression, Anxiety, Other Musculoskeletal: Osteoarthritis, Osteoporosis, Osteopenia, Fatigue, Scoliosis, Chronic back pain Derm: None - Past Surgical History Past Surgical History: Yes Ortho: Spine surgery, Other - Present Medications Home Medications: Ambulatory Orders Medication Instructions Recorded Confirmed Aspirin Chewable [[place] 81 mg PO DAILY 03/18/21 03/18/21 Aspirin] Atorvastatin Calcium 40 mg PO DAILY 03/18/21 03/18/21 Bisacodyl Supp [Dulcolax Supp] 10 mg [place] DAILY PRN 03/18/21 03/18/21 Cholecalciferol [Vitamin D3] 1 cap PO DAILY 03/18/21 03/18/21 DULoxetine [Cymbalta] 30 mg PO DAILY 03/18/21 03/18/21 Esomeprazole Magnesium [Nexium 20 mg PO DAILY 03/18/21 03/18/21 24Hr] Levothyroxine Sodium 50 mcg PO DAILY 03/18/21 03/18/21 [Levothyroxine] Liothyronine [Cytomel] 5 mg PO DAILY 03/18/21 03/18/21 Mirtazapine [Remeron] 15 mg PO DAILY 03/18/21 03/18/21 Oxycodone HCl/Acetaminophen 1 tab PO Q6HR PRN 03/18/21 03/18/21 [Percocet 5-325 mg Tablet] Sennosides/Docusate Sodium [Senna 1 tab PO BID PRN 03/18/21 03/18/21 Plus 8.6-50 mg Tablet] - Allergies Allergies/Adverse Reactions: Allergies Allergy/AdvReac Type Severity Reaction Status Date / Time carvedilol Allergy Unknown Verified 04/05/21 14:24 celecoxib [From Celebrex] Allergy Emesis Verified 04/05/21 14:24 erythromycin base Allergy Emesis Verified 04/05/21 14:24 sucralfate [From Carafate] Allergy Unknown Verified 04/05/21 14:24 trazodone Allergy Unknown Verified 04/05/21 14:24 - Social History Does the pt smoke?: No Smoking Status: Never smoker Does the pt drink ETOH?: No Does the pt have substance abuse?: No - Immunizations Immunizations are current?: No Immunizations: TDAP >10years/unknown, No immun - POLST Patient has POLST: Yes PD ED PE NORMAL - Vitals Vital signs reviewed: Yes - General General: Alert and oriented X 3, Other (He is alert and oriented to person and place and events but slightly vague she is quite thin and cachectic.) - HEENT HEENT: PERRL, EOMI - Neck Neck: Supple, no meningeal sign, No bony TTP - Cardiac Cardiac: RRR, No murmur - Respiratory Respiratory: Other (Rhonchorous bilaterally) - Abdomen Abdomen: Non tender - Back Back: No CVA TTP, No spinal TTP - Derm Derm: Normal color, Warm and dry - Extremities Extremities: No edema, No calf tenderness / cord - Neuro Neuro: Alert and oriented X 3, No motor deficit, No sensory deficit, Normal speech Results - Vitals Vitals: Vital Signs - 24 hr 04/05/21 04/05/21 14:17 14:57 Temperature 36.2 C L Heart Rate 83 84 Respiratory 16 20 Rate Blood Pressure 129/109 H 133/51 H O2 Saturation 95 99 Oxygen O2 Source Room air Oxygen Flow Rate 4 - Labs Labs: Laboratory Tests 04/05/21 04/05/21 14:33 14:33 WBC 10.6 RBC 3.86 L Hgb 11.1 L Hct 36.8 L MCV 95.3 MCH 28.8 MCHC 30.2 L RDW 13.8 Plt Count 367 MPV 8.8 Neut # (Auto) 9.0 H Lymph # (Auto) 0.7 L Starr # (Auto) 0.7 Eos # (Auto) 0.2 Baso # (Auto) 0.1 Absolute Nucleated RBC 0.00 Nucleated RBC % 0.0 Sodium 134 L Potassium 4.2 Chloride 84 L Carbon Dioxide 41 H* Anion Gap 9.0 BUN 33 H Creatinine 0.6 Estimated GFR (MDRD) 95 Glucose 161 H Calcium 9.2 PD MEDICAL DECISION MAKING - ED course ED course: 86-year-old woman presents with severe dehydration and aspiration pneumonia requiring supplemental oxygen. She is started on 200 mL an hour of saline noting the very low chloride and Unasyn after discussion with the hospitalist, Dr. Mclaughlin for admission at 3:07 PM. Departure - Departure Disposition: 66 CAH DC/Xfer Clinical Impression: Dehydration Pneumonia Qualifiers: Pneumonia type: aspiration pneumonia Aspiration pneumonia type: due to regurgitated food Laterality: right Lung location: lower lobe of lung Qualified Code(s): J69.0 - Pneumonitis due to inhalation of food and vomit Condition: Serious
[2021-04-05 14:38] LABS: BASOPHILS # (AUTO) 0.1 10^3/uL (0.0-0.1); BASOPHILS % (AUTO) 0.6 %; EOSINOPHILS # (AUTO) 0.2 10^3/uL (0.0-0.7); EOSINOPHILS % (AUTO) 1.7 %; HCT - HEMATOCRIT 36.8 % (37.0-47.0); HGB - HEMOGLOBIN 11.1 g/dL (12.0-16.0); LYMPHOCYTES # (AUTO) 0.7 10^3/uL (1.5-3.5); LYMPHOCYTES % (AUTO) 6.2 %; MEAN CORPUSCULAR HEMOGLOBIN 28.8 pg (27.0-31.0); MEAN CORPUSCULAR HGB CONC 30.2 g/dL (32.0-36.0); MEAN CORPUSCULAR VOLUME 95.3 fL (81.0-99.0); MEAN PLATELET VOLUME 8.8 fL (7.9-10.8); MONOCYTES # (AUTO) 0.7 10^3/uL (0.0-1.0); MONOCYTES % (AUTO) 6.5 %; NEUTROPHILS % (AUTO) 84.8 %; PLT - PLATELET COUNT 367 10^3/uL (130-450); RED BLOOD COUNT 3.86 10^6/uL (4.20-5.40); RED CELL DISTRIBUTION WIDTH 13.8 % (12.0-15.0); WHITE BLOOD COUNT 10.6 x10^3/uL (4.8-10.8)
--- NOTE | 2021-04-05 14:44 | XRAY Report ---
PROCEDURE: Chest 1 View X-Ray INDICATIONS: aspiration/hypoxemia TECHNIQUE: One view of the chest was acquired. COMPARISON: 03/18/2021 FINDINGS: Surgical changes and devices: None. Lungs and pleura: No pleural effusions or pneumothorax. Scattered scarring and atelectasis. There is increased right lower lobe patchy opacity at the prior study. Mediastinum: Mediastinal contours appear normal. Heart size is normal. Bones and chest wall: No suspicious bony lesions. Overlying soft tissues appear unremarkable. IMPRESSION: Mild increased right basilar patchy opacities, possibly early pneumonia, versus aspiration or atelect asis. If there is persistent clinical diagnostic uncertainty, recommend short interval radiographic f ollow-up after treatment for further assessment. Reviewed by: David Sutton MD on 04/05/2021 2:42 PM PDT Approved by: David Sutton MD on 04/05/2021 2:42 PM PDT Station ID: [id number]
[2021-04-05 14:54] LABS: CALCIUM 9.2 mg/dL (8.5-10.3); CREATININE 0.6 mg/dL (0.4-1.0); POTASSIUM 4.2 mmol/L (3.5-5.0)
[2021-04-05] MEDS ORDERED: SODIUM CHLORIDE 0.9% 1,000 ML IV STA (15:03)
[2021-04-05] MEDS ORDERED: cefTRIAXone 2 GM in SODIUM CHLORIDE 0.9% MINIBAG 100 ML IV STA (15:06)
[2021-04-05] MEDS ORDERED: metroNIDAZOLE 500 MG/100 ML 500 MG/100 ML BAG IV ONE (15:06)
[2021-04-05] MEDS ORDERED: AMPICILLIN/SULBACTAM 3 GM in SODIUM CHLORIDE 0.9% MINIBAG 100 ML IV STA (15:07)
[2021-04-05] MEDS ORDERED: ONDANSETRON 4 MG/2 ML VIAL IVP PRN (15:41)
--- NOTE | 2021-04-05 16:24 | PHARMACY PROGRESS NOTE ---
- Best Possible Medication History Admit Date and Time: 04/05/21 1541 Processed by: Nursing Medication History completed: Yes Patient Interview: Completed (MED REC COMPLETED BY NURSING) As the person ultimately responsible for medication therapy, providers are able to order a medication from an existing home medication list in [facility] via the "Reconcile Routine" prior to Confirmation of that medication by product support technician. Such practice is discouraged except when the physician, in their clinical judgment, deems that a medical need exists for a medication without regard to previous use.
[2021-04-05 16:26] LABS: B. PARAPERTUSSIS- RESP PCR PAN NOT DETECTED; B. PERTUSSIS- RESP PCR PANEL NOT DETECTED; C. PNEUMONIAE- RESP PCR PANEL NOT DETECTED; CORONAVIRUS 229E-RESP PCR NOT DETECTED; CORONAVIRUS HKU1-RESP PCR NOT DETECTED; CORONAVIRUS NL63-RESP PCR NOT DETECTED; CORONAVIRUS OC43-RESP PCR NOT DETECTED; HUMAN METAPNEUMOVIRUS NOT DETECTED; INFLUENZA A- RESP PCR PANEL NOT DETECTED; INFLUENZA B - RESP PCR PANEL NOT DETECTED; M. PNEUMONIAE- RESP PCR PANEL NOT DETECTED; PARAINFLUENZA VIRUS 1 NOT DETECTED; PARAINFLUENZA VIRUS 2 NOT DETECTED; PARAINFLUENZA VIRUS 3 NOT DETECTED; PARAINFLUENZA VIRUS 4 NOT DETECTED; RHINOVIRUS/ENTEROVIRUS NOT DETECTED; RSV- RESP PCR PANEL NOT DETECTED; SARS-CoV-2 -RESP PCR PANEL NOT DETECTED
--- NOTE | 2021-04-05 16:32 | HISTORY & PHYSICAL EXAMINATION ---
Chief Complaint - Chief Complaint Chief Complaint: cough, aspiration History of Present Illness - Admitted From Admitted From:: Medical floor - History Obtained From Records Reviewed: [facility] History obtained from: pt Exam Limitations: no - History of Present Illness HPI Comment/Other: This is a 86-year-old woman with A past medical history Significant for severe malnutrition, congestive heart failure, chronic pain, coronary artery disease, acid reflux, hypertension, hypothyroidism, previous NSTEMI, osteoporosis, who pr esent ER complain of dysphagia. Pt report she can not swallow since today lunch. she report she had lots of cough since that. Patient reported she always has swallowing issue and cough. Nurse Can did bed side swallowing test, pt pass through but with mild cough. we will offer pt Dysphagia mechanical diet now. pt was noted to have significantly hypoxic with 70% sats on room air prior to pt arrival. Patient denies fever, chill, shortness of breath, chest pain, headache, focal neuro deficit, unilateral weakness. she report she got Covid 19 vaccinated, and her Covid 19 test is negative in ER. Chest x-ray show early pneumonia, concern of aspiration. In routine laboratory tests that show patient had high carbon dioxide. In the ER, patient was afebrile but the patient needed 4 L oxygen support to have 96% sats. Patient is alert orientated +4. Discussed the care goal with the patient, patient clearly stated she want DNR/DNI, nurse Can is at the bedside at the time. pt state her friend Anastasia Baker is her DPOA. History - Past Medical History Cardiovascular: reports: Hypertension, Coronary artery disease, [place] Respiratory: reports: Shortness of breath Neuro: reports: None Endocrine/Autoimmune: reports: HyPOthyroidism GI: reports: GERD QUALITY ANALYST: reports: None : reports: None HEENT: reports: None Psych: reports: Depression, Anxiety, Other Musculoskeletal: reports: Osteoarthritis, Osteoporosis, Osteopenia, Fatigue, Scoliosis, Chronic back pain Derm: reports: None MRSA Hx?: No - Past Surgical History Ortho: reports: Spine surgery, Other - Family & Social History Family History: Mother: , Father: Family History Comment/Other: Patient report her father at the age of 56, from heart attack. Her mother at 67 from cancer. She had 2 children, one is living [place], another one was lost the contact for many years. Social History Notes: She reported she never smoking, no alcohol or drug use. Patient report she lives with [facility], [facility], with her friends. her friend Anastasia Baker is her DPOA - POLST Patient has POLST: Yes Meds/Allgy - Home Medications Home Medications: Ambulatory Orders Medication Instructions Recorded Confirmed Aspirin Chewable [[place] 81 mg PO DAILY 03/18/21 04/05/21 Aspirin] Atorvastatin Calcium 40 mg PO DAILY 03/18/21 04/05/21 Bisacodyl Supp [Dulcolax Supp] 10 mg [place] DAILY PRN 03/18/21 04/05/21 Cholecalciferol [Vitamin D3] 1 cap PO DAILY 03/18/21 04/05/21 DULoxetine [Cymbalta] 30 mg PO DAILY 03/18/21 04/05/21 Esomeprazole Magnesium [Nexium 20 mg PO DAILY 03/18/21 04/05/21 24Hr] Levothyroxine Sodium 50 mcg PO DAILY 03/18/21 04/05/21 [Levothyroxine] Liothyronine [Cytomel] 5 mcg PO DAILY 03/18/21 04/05/21 Mirtazapine [Remeron] 15 mg PO DAILY 03/18/21 04/05/21 Oxycodone HCl/Acetaminophen 1 tab PO Q6HR PRN 03/18/21 04/05/21 [Percocet 5-325 mg Tablet] Sennosides/Docusate Sodium [Senna 1 tab PO BID PRN 03/18/21 04/05/21 Plus 8.6-50 mg Tablet] Isosorbide Mononitrate [Ismo] 15 mg PO DAILY PM 04/05/21 04/05/21 LORazepam [Ativan] 0.5 mg PO DAILY PM 04/05/21 04/05/21 Latanoprost 0.005% Ophth Drops 1 drops EACHEYE DAILY PM 04/05/21 04/05/21 [Xalatan Ophth Drops] Lisinopril [Zestril] 20 mg PO DAILY 04/05/21 04/05/21 Metoprolol Tartrate [Lopressor] 25 mg PO BID 04/05/21 04/05/21 hydroCHLOROthiazide [Hydrodiuril] 12.5 mg PO DAILY 04/05/21 04/05/21 - Allergies Allergies/Adverse Reactions: Allergies Allergy/AdvReac Type Severity Reaction Status Date / Time carvedilol Allergy Unknown Verified 04/05/21 14:24 celecoxib [From Celebrex] Allergy Emesis Verified 04/05/21 14:24 erythromycin base Allergy Emesis Verified 04/05/21 14:24 sucralfate [From Carafate] Allergy Unknown Verified 04/05/21 14:24 trazodone Allergy Unknown Verified 04/05/21 14:24 Review of Systems - Constitutional Constitutional: denies: Fever, Chills, Diaphoresis - Eyes Eyes: denies: Pain, Field loss, Vision loss - Ears, Nose & Throat Ears, Nose & Throat: denies: Ear pain, Nosebleeds, Bleeding gums - Cardiovascular Cariovascular: denies: Palpitations, Chest pain, Syncope - Respiratory Respiratory: reports: Cough. denies: Sputum production, Wheezing, SOB at rest - Gastrointestinal Gastrointestinal: denies: Abdominal pain, Diarrhea, Nausea, Vomiting - Genitourinary Genitourinary: denies: Dysuria, Flank pain - Musculoskeletal Musculoskeletal: denies: Muscle pain, Muscle aches - Integumentary Integumentary: denies: Rash - Neurological Neurological: reports: General weakness. denies: Focal weakness, Headache, Dizziness, Numbness, Seizures, Incoordination, Slurred speech - Psychiatric Psychiatric: denies: Anxiety - Endocrine Endocrine: denies: Polyuria - Hematologic/Lymphatic Hematologic/Lymphatic: denies: Anemia Prior Level of Functionality: [facility] is living [facility] with [facility] friends. Exam - Vital Signs Vital Signs: Vital Signs x48h Temp Pulse Resp BP Pulse Ox 04/05/21 14:57 84 20 133/51 H 99 04/05/21 14:17 36.2 C L 83 16 129/109 H 95 - Physical Exam General Appearance: positive: No acute distress, Alert, Other (pt appear severe malnutrition, muscle wasting). negative: Lethargic Eyes Bilateral: positive: Normal inspection, PERRL, No lid inflammation ENT: positive: ENT inspection nml, Dry mucous membranes. negative: Purulent nasal drainage Neck: positive: Nml inspection, Trachea midline, Other (Patient's neck always lean on the right side). negative: Thyromegaly, Tracheal deviation Respiratory: positive: Chest non-tender, No respiratory distress, Other (Patient has very loudly murmur sounds, it is difficulty to hear lung sounds) Cardiovascular: positive: Regular rate & rhythm, Systolic murmur, Diastolic murmur. negative: Tachycardia, Bradycardia Peripheral Pulses: positive: 2+ Abdomen: positive: Non-tender, No organomegaly, Nml bowel sounds, No distention. negative: Tenderness Back: positive: Nml inspection Skin: positive: Color nml, Warm, Dry. negative: Cyanosis Extremities: positive: Non-tender, Nml appearance, No pedal edema Neurologic/Psychiatric: positive: Oriented x3, Sensation nml, Mood/affect nml, Weakness. negative: Sensory loss, Facial droop, Slurred/abnml speech Sepsis Event Note (H) - Evaluation Current Stage of Sepsis: Ruled out Conclusion/Plan - Problem List (1) Respiratory failure with hypoxia Conclusion/Plan: Patient present dysphagia, cough and aspiration pneumonia. Patient was noted to have 70% sats on room air prior to ER. Now patient needed 4 L oxygen to support she had 96% sats in ER. Chest x-ray concern for early pneumonia with aspiration. We will treat the patient with Unasyn, consult with speech therapist,Supplemental oxygen as needed. (2) Aspiration pneumonia Conclusion/Plan: pt present Aspiration, cough, dysphagia. Chest x-ray concern for early pneumonia with aspiration. We will treat the patient with Unasyn, consult with speech therapist,Supplemental oxygen as needed. (3) Dysphagia Conclusion/Plan: Patient reported she had chronic dysphagia problem. Nurse did at bedside swallo wing study and passed through. We will order patient dysphagia mechanical diet, continue consult with speech therapist. add protonic for pt, pt has hx of GERD. If patient continue have severe dysphagia, we may consult with a GI surgeon to have EGD study. Aspiration precaution for patient. (4) Severe malnutrition Conclusion/Plan: Patient present severe malnutrition, BMI 15. Patient reported she had chronic dysphagia. We will consult with speech therapist, consult with television writer, We will start with dysphagia mechanical diet. (5) HTN (hypertension) Conclusion/Plan: Patient has a history of hypertension, will resume patient home blood pressure medicine (6) Hx of coronary artery disease Conclusion/Plan: Patient has a history of CAD, will resume home aspirin, Lipitor, media monitor patient. (7) Hypothyroidism Conclusion/Plan: Patient has a history pf hypothyroidism, we will check a TSH, we will resume patient home medication (8) Depression Conclusion/Plan: Patient has a history of depression, we will resume home medication Cymbalta (9) Heart murmur Conclusion/Plan: Patient present severe both systolic and diastolic murmur, patient with history of CHF, we will order echo study, Continue quality assurance monitor patient. (10) Dehydration Conclusion/Plan: Patient clinically present dehydration, dry mouth. patient reported she has dehydration. Patient has a history of dysphagia, poor malnutrition. We will start with intravenous IV fluids, precaution of fluid overloaded as well - Lab Results Fish Bones: 04/05/21 14:33 04/05/21 14:33 Core Measures - Anticipated LOS I expect patient to be DC'd or transferred within 96 hours.: Yes - DVT/VTE - Prophylaxis VTE/DVT Device ordered at admit?: Yes VTE/DVT Prophylaxis med ordered at admit?: Yes
[2021-04-05] MEDS: PANTOPRAZOLE 40 MG VIAL IVP SCH (17:47)
[2021-04-05] MEDS: SODIUM CHLORIDE 0.9% 1,000 ML IV SCH (17:47)
[2021-04-05] MEDS: SODIUM CHLORIDE FLUSH 0.9% 10 ML SYRINGE IVP SCH (17:47)
[2021-04-05] MEDS: LATANOPROST 0.005% OPHTH DROPS EACHEYE SCH (20:59)
[2021-04-05] MEDS: ISOSORBIDE MONONITRATE 10 MG TABLET PO SCH (20:59)
[2021-04-05] MEDS: METOPROLOL TARTRATE 25 MG TABLET PO SCH (21:00)
[2021-04-05] MEDS: AMPICILLIN/SULBACTAM 3 GM in SODIUM CHLORIDE 0.9% MINIBAG 100 ML IV SCH (23:38)
[2021-04-06] MEDS: SODIUM CHLORIDE FLUSH 0.9% 10 ML SYRINGE IVP SCH ×3 (00:37→16:13)
[2021-04-06] MEDS: AMPICILLIN/SULBACTAM 3 GM in SODIUM CHLORIDE 0.9% MINIBAG 100 ML IV SCH ×5 (04:45→23:16)
[2021-04-06] MEDS: SODIUM CHLORIDE 0.9% 1,000 ML IV SCH (06:04)
[2021-04-06 06:08] LABS: BASOPHILS # (AUTO) 0.1 10^3/uL (0.0-0.1); BASOPHILS % (AUTO) 0.7 %; EOSINOPHILS # (AUTO) 0.6 10^3/uL (0.0-0.7); EOSINOPHILS % (AUTO) 6.6 %; HCT - HEMATOCRIT 34.5 % (37.0-47.0); HGB - HEMOGLOBIN 10.3 g/dL (12.0-16.0); LYMPHOCYTES # (AUTO) 0.6 10^3/uL (1.5-3.5); LYMPHOCYTES % (AUTO) 6.9 %; MEAN CORPUSCULAR HEMOGLOBIN 29.4 pg (27.0-31.0); MEAN CORPUSCULAR HGB CONC 29.9 g/dL (32.0-36.0); MEAN CORPUSCULAR VOLUME 98.6 fL (81.0-99.0); MEAN PLATELET VOLUME 9.1 fL (7.9-10.8); MONOCYTES # (AUTO) 0.5 10^3/uL (0.0-1.0); MONOCYTES % (AUTO) 5.1 %; NEUTROPHILS # (AUTO) 7.1 10^3/uL (1.5-6.6); NEUTROPHILS % (AUTO) 80.5 %; PLT - PLATELET COUNT 321 10^3/uL (130-450); RED CELL DISTRIBUTION WIDTH 13.6 % (12.0-15.0); WHITE BLOOD COUNT 8.8 x10^3/uL (4.8-10.8)
[2021-04-06] MEDS: SODIUM CHLORIDE FLUSH 0.9% 10 ML SYRINGE IVP PRN (06:21)
[2021-04-06] MEDS: PANTOPRAZOLE 40 MG VIAL IVP SCH (06:21)
[2021-04-06] MEDS: LEVOTHYROXINE 25 MCG TABLET PO SCH (06:24)
[2021-04-06 06:25] LABS: CALCIUM 8.8 mg/dL (8.5-10.3); CREATININE 0.5 mg/dL (0.4-1.0); CRP - C-REACTIVE PROTEIN 6.3 mg/dL (0-1.0); POTASSIUM 3.9 mmol/L (3.5-5.0)
[2021-04-06] MEDS ORDERED: hydroCHLOROthiazide 12.5 MG CAPSULE PO SCH (09:00)
[2021-04-06] MEDS: SACCHAROMYCES BOULARDII 250 MG CAPSULE PO SCH ×2 (12:45→17:07)
[2021-04-06] MEDS: ASPIRIN CHEW 81 MG TABLET PO SCH (12:47)
[2021-04-06] MEDS: ATORVASTATIN 40 MG TABLET PO SCH (12:47)
[2021-04-06] MEDS: DULoxetine 30 MG CAPSULE PO SCH (12:48)
[2021-04-06] MEDS: METOPROLOL TARTRATE 25 MG TABLET PO SCH ×2 (12:48→21:27)
[2021-04-06] MEDS: LIOTHYRONINE 5 MCG TABLET PO SCH (12:50)
[2021-04-06] MEDS: lisinopriL 20 MG TABLET PO SCH (12:51)
[2021-04-06] MEDS: ENOXAPARIN 40 MG/0.4 ML SYRINGE SUBQ SCH (12:52)
--- NOTE | 2021-04-06 13:57 | PROVIDER PROGRESS NOTE ---
Assessment/Plan - Problem List (1) Respiratory failure with hypoxia Assessment/Plan: 04/06 Improved, Patient reported she feel better and more energy. Patient had 96% sats on 2 L oxygen. Yesterday patient needed 4 L oxygen. We will continue with antibiotics, Supplemental oxygen as needed Patient present dysphagia, cough and aspiration pneumonia. Patient was noted to have 70% sats on room air prior to ER. Now patient needed 4 L oxygen to support she had 96% sats in ER. Chest x-ray concern for early pneumonia with aspiration. We will treat the patient with Unasyn, consult with speech therapist,Supplem ental oxygen as needed. (2) Aspiration pneumonia Conclusion/Plan: 04/06 Improved, patient has no fever, WBC is slightly down. We will continue antibiotics pt present Aspiration, cough, dysphagia. Chest x-ray concern for early pneumonia with aspiration. We will treat the patient with Unasyn, consult with speech therapist,Supplemental oxygen as needed. (3) Dysphagia Conclusion/Plan: 04/06 Improved, Patient ate 75% of dysphagia mechanical diet. ST assessment is pending. Continue dysphagia mechanical diet right now, Aspiration precaution Patient reported she had chronic dysphagia problem. Nurse did at bedside swall owing study and passed through. We will order patient dysphagia mechanical diet, continue consult with speech therapist. add protonic for pt, pt has hx of GERD. If patient continue have severe dysphagia, we may consult with a GI surgeon to have EGD study. Aspiration precaution for patient. (4) Severe malnutrition Conclusion/Plan: 04/06 Commodities Manager is consulted, we will follow up Patient present severe malnutrition, BMI 15. Patient reported she had chronic dysphagia. We will consult with speech therapist, consult with tick eradicator, We will start with dysphagia mechanical diet. (5) HTN (hypertension) Conclusion/Plan: Patient has a history of hypertension, will resume patient home blood pressure medicine (6) Hx of coronary artery disease Conclusion/Plan: Patient has a history of CAD, will resume home aspirin, Lipitor, monitoring tech patient. (7) Hypothyroidism Conclusion/Plan: Patient has a history pf hypothyroidism, we will check a TSH, we will resume patient home medication (8) Depression Conclusion/Plan: Patient has a history of depression, we will resume home medication Cymbalta (9) Heart murmur Conclusion/Plan: Patient present severe both systolic and diastolic murmur, patient with history of CHF, we will order echo study, Continue athletic monitor patient. (10) Dehydration Conclusion/Plan: 04/06, Improved, we will finish 2 bag of intravenous IV fluids at 85 cc/h, Precaution fluid overloaded Patient clinically present dehydration, dry mouth. patient reported she has dehydration. Patient has a history of dysphagia, poor malnutrition. We will start with intravenous IV fluids, precaution of fluid overloaded as well - Current Meds Current Meds: Current Medications Generic Name Dose Route Start Last Admin Trade Name Justyn PRN Reason Stop Dose Admin Aspirin 81 mg 04/06/21 09:00 04/06/21 12:47 Aspirin Chew 81 Mg Tablet PO 81 mg DAILY ROYER Administration Atorvastatin Calcium 40 mg 04/06/21 09:00 04/06/21 12:47 Atorvastatin 40 Mg Tablet PO 40 mg DAILY ROYER Administration Duloxetine HCl 30 mg 04/06/21 09:00 04/06/21 12:48 Duloxetine 30 Mg Capsule PO 30 mg DAILY ROYER Administration Enoxaparin Sodium 40 mg 04/06/21 09:00 04/06/21 12:52 Enoxaparin 40 Mg/0.4 Ml Syringe SUBQ 40 mg DAILY ROYER Administration Hydrochlorothiazide 12.5 mg 04/06/21 09:00 04/06/21 12:52 Hydrochlorothiazide 12.5 Mg Capsule PO 12.5 mg DAILY ROYER Administration Ampicillin Sodium/Sulbactam 100 mls @ 200 mls/hr 04/05/21 22:00 04/06/21 13:19 Sodium 3 gm/ Sodium Chloride IV Infused Q6H ROYER Infusion Sodium Chloride 1,000 mls @ 85 mls/hr 04/05/21 18:00 04/06/21 06:04 Normal Saline 0.9% IV 04/06/21 17:31 85 mls/hr .[id number] ROYER Administration Isosorbide Mononitrate 15 mg 04/05/21 21:00 04/05/21 20:59 Isosorbide Mononitrate 10 Mg Tablet PO 15 mg QPM ROYER Administration Latanoprost 1 drops 04/05/21 21:00 04/05/21 20:59 Latanoprost 0.005% Ophth Drops EACHEYE 1 drops QPM ROYER Administration Levothyroxine Sodium 50 mcg 04/06/21 07:00 04/06/21 06:24 Levothyroxine 25 Mcg Tablet PO 50 mcg QDAC ROYER Administration Liothyronine Sodium 5 mcg 04/06/21 09:00 04/06/21 12:50 Liothyronine 5 Mcg Tablet PO 5 mcg DAILY ROYER Administration Lisinopril 20 mg 04/06/21 09:00 04/06/21 12:51 Lisinopril 20 Mg Tablet PO 20 mg DAILY ROYER Administration Metoprolol Tartrate 25 mg 04/05/21 21:00 04/06/21 12:48 Metoprolol Tartrate 25 Mg Tablet PO 25 mg BID ROYER Administration Pantoprazole Sodium 40 mg 04/05/21 18:00 04/06/21 06:21 Pantoprazole 40 Mg Vial IVP 40 mg QDAC ROYER Administration Saccharomyces Boulardii 250 mg 04/06/21 08:00 04/06/21 12:45 Saccharomyces Boulardii 250 Mg Capsule PO 250 mg BIDWM ROYER Administration Sodium Chloride 10 ml 04/05/21 15:41 04/06/21 06:21 Sodium Chloride Flush 0.9% 10 Ml Syringe IVP 10 ml PRN PRN Administration NEEDED PER PROVIDER ORDERS Sodium Chloride 10 ml 04/05/21 17:00 04/06/21 13:01 Sodium Chloride Flush 0.9% 10 Ml Syringe IVP Not Given 0100,0900,1700 ROYER - Lab Result Fish Bone Diagrams: 04/06/21 05:14 04/06/21 05:14 - Additional Planning My Orders: My Active Orders 04/05/21 15:41 Activity Orders [RC] Q2HR IO [RC] IOSHIFT Initiate Bowel Care Protocol [RC] .protocol Initiate Line Care Protocol [RC] QSHIFT Initiate Personal Care Protoco [RC] .protocol Telemetry- [RC] Q4HR Vital Signs [RC] Q4H Acetaminophen [Tylenol] 650 mg PO Q4HR PRN Ondansetron Inj [Zofran Inj] 4 mg IVP Q6HR PRN Sodium Chloride Flush 0.9% [Normal Saline Flush 0.9%] 10 ml IVP PRN PRN Code Status [OTHERS] Routine Condition of Patient [OTHERS] Routine DVT Prophylaxis [OTHERS] Routine 04/05/21 15:42 IV Insert [RC] .ONCE 04/05/21 15:43 SCDs [RC] QSHIFT 04/05/21 Dinner Dysphagia Mechanically Altered Diet [DIET] 04/05/21 16:16 oxyCODONE [Roxicodone] 5 mg PO Q6HR PRN 04/05/21 17:00 Sodium Chloride Flush 0.9% [Normal Saline Flush 0.9%] 10 ml IVP 0100,0900,1700 04/05/21 17:10 Nutrition Consult [CONS] Routine 04/05/21 18:00 Pantoprazole [Protonix] 40 mg IVP QDAC Sodium Chloride 0.9% [Normal Saline 0.9%] 1,000 ml IV 85 mls/hr 04/05/21 21:00 Isosorbide Mononitrate [Ismo] 15 mg PO QPM Latanoprost 0.005% Ophth Drops [Xalatan Ophth Drops] 1 drops EACHEYE QPM Metoprolol Tartrate [Lopressor] 25 mg PO BID 04/05/21 22:00 Ampicillin/Sulbactam [Unasyn] 3 gm Sodium Chloride 0.9% Minibag [Normal Saline 0.9% Minibag] 100 ml IV Q6H 04/06/21 07:00 Levothyroxine [Synthroid] 50 mcg PO QDAC 04/06/21 08:00 Saccharomyces Boulardii [Florastor] 250 mg PO BIDWM 04/06/21 09:00 Aspirin Chewable [[place] Aspirin] 81 mg PO DAILY Atorvastatin [Lipitor] 40 mg PO DAILY DULoxetine [Cymbalta] 30 mg PO DAILY Enoxaparin [Lovenox] 40 mg SUBQ DAILY Liothyronine [Cytomel] 5 mcg PO DAILY hydroCHLOROthiazide [Hydrodiuril] 12.5 mg PO DAILY lisinopriL [Zestril] 20 mg PO DAILY 04/06/21 17:17 Echo Transthoracic Complete [ECHO] Stat 04/07/21 05:00 BMP - BASIC METABOLIC PANEL [CHEM] DAILYLAB CBC - COMP BLD CT W/AUTO DIFF [HEME] DAILYLAB CRP - C-REACTIVE PROTEIN [CHEM] DAILYLAB 04/08/21 05:00 BMP - BASIC METABOLIC PANEL [CHEM] DAILYLAB CBC - COMP BLD CT W/AUTO DIFF [HEME] DAILYLAB CRP - C-REACTIVE PROTEIN [CHEM] DAILYLAB 04/09/21 05:00 BMP - BASIC METABOLIC PANEL [CHEM] DAILYLAB CBC - COMP BLD CT W/AUTO DIFF [HEME] DAILYLAB CRP - C-REACTIVE PROTEIN [CHEM] DAILYLAB 04/10/21 05:00 BMP - BASIC METABOLIC PANEL [CHEM] DAILYLAB CBC - COMP BLD CT W/AUTO DIFF [HEME] DAILYLAB CRP - C-REACTIVE PROTEIN [CHEM] DAILYLAB Subjective - Subjective Patient Reports: Feeling Better Objective Vital Signs: Vital Signs - 24 hr 04/05/21 04/05/21 04/05/21 14:17 14:57 16:27 Temperature 36.2 C L 36.5 C Heart Rate 83 84 85 Heart Rate [ Brachial] Heart Rate [ Monitoring electrodes] Respiratory 16 20 22 Rate Blood Pressure 129/109 H 133/51 H 131/59 H Blood Pressure [Left Brachial artery] Blood Pressure [Right Brachial artery] O2 Saturation 95 99 96 04/05/21 04/05/21 04/05/21 17:19 20:25 21:00 Temperature 36.7 C 37.4 C Heart Rate Heart Rate [ 94 Brachial] Heart Rate [ 87 Monitoring electrodes] Respiratory 16 20 Rate Blood Pressure 146/57 H Blood Pressure 144/60 H 146/57 H [Left Brachial artery] Blood Pressure [Right Brachial artery] O2 Saturation 99 100 04/05/21 04/06/21 04/06/21 23:39 02:19 04:13 Temperature 36 C L 36.4 C L Heart Rate Heart Rate [ 106 H 93 Brachial] Heart Rate [ Monitoring electrodes] Respiratory 18 18 Rate Blood Pressure Blood Pressure 152/66 H [Left Brachial artery] Blood Pressure 135/72 H [Right Brachial artery] O2 Saturation 98 98 100 04/06/21 04/06/21 04/06/21 04:38 04:41 05:30 Temperature Heart Rate Heart Rate [ Brachial] Heart Rate [ 77 Monitoring electrodes] Respiratory Rate Blood Pressure Blood Pressure [Left Brachial artery] Blood Pressure [Right Brachial artery] O2 Saturation 100 100 88 L 04/06/21 04/06/21 04/06/21 05:35 07:39 11:37 Temperature 36.5 C 36.5 C Heart Rate Heart Rate [ 79 89 Brachial] Heart Rate [ Monitoring electrodes] Respiratory 18 18 Rate Blood Pressure Blood Pressure 133/50 H [Left Brachial artery] Blood Pressure 157/61 H [Right Brachial artery] O2 Saturation 98 100 96 Oxygen O2 Source Nasal cannula Oxygen Flow Rate 4 I&O (Last 24 Hrs): Intake and Output Totals x24h 04/04/21 04/05/21 04/06/21 23:59 23:59 23:59 Intake Total 927.25 1282.750 Output Total 200 500 Balance 727.25 782.750 General: Alert, Oriented x3, Cooperative, No acute distress HEENT: Atraumatic, PERRLA Neck: Supple Lymphatic: no adenopathy Neuro: Alert, Non Focal, Oriented Times 3 Cardiovascular: Regular rate, Normal S1, Normal S2 Respiratory: Chest non-tender, No respiratory distress Abdomen: Normal bowel sounds, Soft Extremities: Normal pulses - Results Results: Laboratory Results WBC 8.8 x10^3/uL (4.8-10.8) 04/06/21 05:14 RBC 3.50 10^6/uL (4.20-5.40) L 04/06/21 05:14 Hgb 10.3 g/dL (12.0-16.0) L 04/06/21 05:14 Hct 34.5 % (37.0-47.0) L 04/06/21 05:14 MCV 98.6 fL (81.0-99.0) 04/06/21 05:14 MCH 29.4 pg (27.0-31.0) 04/06/21 05:14 MCHC 29.9 g/dL (32.0-36.0) L 04/06/21 05:14 RDW 13.6 % (12.0-15.0) 04/06/21 05:14 Plt Count 321 10^3/uL (130-450) 04/06/21 05:14 MPV 9.1 fL (7.9-10.8) 04/06/21 05:14 Neut # (Auto) 7.1 10^3/uL (1.5-6.6) H 04/06/21 05:14 Lymph # (Auto) 0.6 10^3/uL (1.5-3.5) L 04/06/21 05:14 [place] # (Auto) 0.5 10^3/uL (0.0-1.0) 04/06/21 05:14 Eos # (Auto) 0.6 10^3/uL (0.0-0.7) 04/06/21 05:14 Baso # (Auto) 0.1 10^3/uL (0.0-0.1) 04/06/21 05:14 Absolute Nucleated RBC 0.00 x10^3/uL 04/06/21 05:14 Nucleated RBC % 0.0 /100WBC 04/06/21 05:14 Sodium 135 mmol/L (135-145) 04/06/21 05:14 Potassium 3.9 mmol/L (3.5-5.0) 04/06/21 05:14 Chloride 84 mmol/L (101-111) L 04/06/21 05:14 Carbon Dioxide 41 mmol/L (21-32) H* 04/06/21 05:14 Anion Gap 10.0 (6-13) 04/06/21 05:14 BUN 25 mg/dL (6-20) H 04/06/21 05:14 Creatinine 0.5 mg/dL (0.4-1.0) 04/06/21 05:14 Estimated GFR (MDRD) 117 (>89) 04/06/21 05:14 Glucose 146 mg/dL (70-100) H 04/06/21 05:14 Calcium 8.8 mg/dL (8.5-10.3) 04/06/21 05:14 C-Reactive Protein 6.3 mg/dL (0-1.0) H 04/06/21 05:14 TSH 1.75 uIU/mL (0.34-5.60) 04/05/21 14:33 Nasal Adenovirus (PCR) NOT DETECTED 04/05/21 15:25 Nasal B. parapertussis DNA (PCR) NOT DETECTED 04/05/21 15:25 Nasal Coronavir 229E PCR NOT DETECTED 04/05/21 15:25 Nasal Coronavir HKU1 PCR NOT DETECTED 04/05/21 15:25 Nasal Coronavir NL63 PCR NOT DETECTED 04/05/21 15:25 Nasal Coronavir OC43 PCR NOT DETECTED 04/05/21 15:25 Nasal Enterovir/Rhinovir PCR NOT DETECTED 04/05/21 15:25 Nasal Influenza B PCR NOT DETECTED 04/05/21 15:25 Nasal Influenza A PCR NOT DETECTED 04/05/21 15:25 Nasal Parainfluen 1 PCR NOT DETECTED 04/05/21 15:25 Nasal Parainfluen 2 PCR NOT DETECTED 04/05/21 15:25 Nasal Parainfluen 3 PCR NOT DETECTED 04/05/21 15:25 Nasal Parainfluen 4 PCR NOT DETECTED 04/05/21 15:25 Nasal RSV (PCR) NOT DETECTED 04/05/21 15:25 Nasal B.pertussis DNA PCR NOT DETECTED 04/05/21 15:25 Nasal C.pneumoniae (PCR) NOT DETECTED 04/05/21 15:25 Chet Human Metapneumo PCR NOT DETECTED 04/05/21 15:25 Nasal M.pneumoniae (PCR) NOT DETECTED 04/05/21 15:25 Nasal SARS-CoV-2 (PCR) NOT DETECTED 04/05/21 15:25 Sepsis Event Note (H) - Evaluation Current Stage of Sepsis: Ruled out ABX Reporting Has patient been on IV antibiotics over the past 48 hours?: Yes Current Medications - Current Medications Current Medications: Active Medications Acetaminophen (Acetaminophen 325 Mg Tablet) 650 mg PO Q4HR PRN PRN Reason: Pain 1 to 4 Aspirin (Aspirin Chew 81 Mg Tablet) 81 mg PO DAILY [facility] [place] Last Admin: 04/06/21 12:47 Dose: 81 mg Documented by: Atorvastatin Calcium (Atorvastatin 40 Mg Tablet) 40 mg PO DAILY [facility] [place] Last Admin: 04/06/21 12:47 Dose: 40 mg Documented by: Duloxetine HCl (Duloxetine 30 Mg Capsule) 30 mg PO DAILY [facility] [place] Last Admin: 04/06/21 12:48 Dose: 30 mg Documented by: Enoxaparin Sodium (Enoxaparin 40 Mg/0.4 Ml Syringe) 40 mg SUBQ DAILY [facility] [place] Last Admin: 04/06/21 12:52 Dose: 40 mg Documented by: Guaifenesin (Guaifenesin 600 Mg Tablet) 600 mg PO BID [facility] [place] Hydrochlorothiazide (Hydrochlorothiazide 12.5 Mg Capsule) 12.5 mg PO DAILY [facility] [place] Last Admin: 04/06/21 12:52 Dose: 12.5 mg Documented by: Ampicillin Sodium/Sulbactam (Sodium 3 gm/ Sodium Chloride) 100 mls @ 200 mls/hr IV Q6H [facility] [place] Last Infusion: 04/06/21 13:19 Dose: Infused Documented by: Sodium Chloride (Normal Saline 0.9%) 1,000 mls @ 85 mls/hr IV .[id number] [facility] [place] Stop: 04/06/21 17:31 Last Admin: 04/06/21 06:04 Dose: 85 mls/hr Documented by: Isosorbide Mononitrate (Isosorbide Mononitrate 10 Mg Tablet) 15 mg PO QPM [facility] [place] Last Admin: 04/05/21 20:59 Dose: 15 mg Documented by: Latanoprost (Latanoprost 0.005% Ophth Drops) 1 drops EACHEYE QPM [facility] [place] Last Admin: 04/05/21 20:59 Dose: 1 drops Documented by: Levothyroxine Sodium (Levothyroxine 25 Mcg Tablet) 50 mcg PO QDAC [facility] [place] Last Admin: 04/06/21 06:24 Dose: 50 mcg Documented by: Liothyronine Sodium (Liothyronine 5 Mcg Tablet) 5 mcg PO DAILY [facility] [place] Last Admin: 04/06/21 12:50 Dose: 5 mcg Documented by: Lisinopril (Lisinopril 20 Mg Tablet) 20 mg PO DAILY [facility] [place] Last Admin: 04/06/21 12:51 Dose: 20 mg Documented by: Metoprolol Tartrate (Metoprolol Tartrate 25 Mg Tablet) 25 mg PO BID [facility] [place] Last Admin: 04/06/21 12:48 Dose: 25 mg Documented by: Ondansetron HCl (Ondansetron 4 Mg/2 Ml Vial) 4 mg IVP Q6HR PRN PRN Reason: Nausea / Vomiting Oxycodone HCl (Oxycodone 5 Mg Tablet) 5 mg PO Q6HR PRN PRN Reason: PAIN Pantoprazole Sodium (Pantoprazole 40 Mg Vial) 40 mg IVP QDAC [facility] [place] Last Admin: 04/06/21 06:21 Dose: 40 mg Documented by: Saccharomyces Boulardii (Saccharomyces Boulardii 250 Mg Capsule) 250 mg PO BI DWM [facility] [place] Last Admin: 04/06/21 12:45 Dose: 250 mg Documented by: Sodium Chloride (Sodium Chloride Flush 0.9% 10 Ml Syringe) 10 ml IVP PRN PRN PRN Reason: NEEDED PER PROVIDER ORDERS Last Admin: 04/06/21 06:21 Dose: 10 ml Documented by: Sodium Chloride (Sodium Chloride Flush 0.9% 10 Ml Syringe) 10 ml IVP 0100,0900,1700 [facility] [place] Last Admin: 04/06/21 13:01 Dose: Not Given Documented by: Aspirin Chewable [[place] Aspirin] 81 mg PO DAILY 03/18/21 Atorvastatin Calcium 40 mg PO DAILY 03/18/21 Bisacodyl Supp [Dulcolax Supp] 10 mg MS DAILY PRN 03/18/21 Cholecalciferol [Vitamin D3] 1 cap PO DAILY 03/18/21 DULoxetine [Cymbalta] 30 mg PO DAILY 03/18/21 Esomeprazole Magnesium [Nexium 24Hr] 20 mg PO DAILY 03/18/21 Levothyroxine Sodium [Levothyroxine] 50 mcg PO DAILY 03/18/21 Liothyronine [Cytomel] 5 mcg PO DAILY 03/18/21 Mirtazapine [Remeron] 15 mg PO DAILY 03/18/21 Oxycodone HCl/Acetaminophen [Percocet 5-325 mg Tablet] 1 tab PO Q6HR PRN 03/18/21 Sennosides/Docusate Sodium [Senna Plus 8.6-50 mg Tablet] 1 tab PO BID PRN 03/18/21 Isosorbide Mononitrate [Ismo] 15 mg PO DAILY PM 04/05/21 LORazepam [Ativan] 0.5 mg PO DAILY PM 04/05/21 Latanoprost 0.005% Ophth Drops [Xalatan Ophth Drops] 1 drops EACHEYE DAILY PM 04/05/21 Lisinopril [Zestril] 20 mg PO DAILY 04/05/21 Metoprolol Tartrate [Lopressor] 25 mg PO BID 04/05/21 hydroCHLOROthiazide [Hydrodiuril] 12.5 mg PO DAILY 04/05/21
[2021-04-06] MEDS: guaiFENesin 600 MG TABLET PO SCH ×2 (16:08→21:27)
[2021-04-06] MEDS: ISOSORBIDE MONONITRATE 10 MG TABLET PO SCH (21:27)
[2021-04-06] MEDS: LATANOPROST 0.005% OPHTH DROPS EACHEYE SCH (21:29)
[2021-04-07] MEDS: SODIUM CHLORIDE FLUSH 0.9% 10 ML SYRINGE IVP SCH ×3 (00:15→17:38)
[2021-04-07] MEDS: AMPICILLIN/SULBACTAM 3 GM in SODIUM CHLORIDE 0.9% MINIBAG 100 ML IV SCH (04:52)
[2021-04-07] MEDS: SODIUM CHLORIDE FLUSH 0.9% 10 ML SYRINGE IVP PRN (06:23)
[2021-04-07] MEDS: PANTOPRAZOLE 40 MG VIAL IVP SCH (06:23)
[2021-04-07] MEDS: LEVOTHYROXINE 25 MCG TABLET PO SCH (06:23)
[2021-04-07 07:42] LABS: BASOPHILS # (AUTO) 0.1 10^3/uL (0.0-0.1); BASOPHILS % (AUTO) 0.8 %; EOSINOPHILS # (AUTO) 0.2 10^3/uL (0.0-0.7); EOSINOPHILS % (AUTO) 3.6 %; HCT - HEMATOCRIT 30.2 % (37.0-47.0); LYMPHOCYTES % (AUTO) 15.2 %; MEAN CORPUSCULAR HEMOGLOBIN 29.2 pg (27.0-31.0); MEAN CORPUSCULAR HGB CONC 29.8 g/dL (32.0-36.0); MEAN CORPUSCULAR VOLUME 98.1 fL (81.0-99.0); MEAN PLATELET VOLUME 9.4 fL (7.9-10.8); MONOCYTES # (AUTO) 0.4 10^3/uL (0.0-1.0); MONOCYTES % (AUTO) 6.4 %; NEUTROPHILS # (AUTO) 4.7 10^3/uL (1.5-6.6); NEUTROPHILS % (AUTO) 73.8 %; PLT - PLATELET COUNT 278 10^3/uL (130-450); RED BLOOD COUNT 3.08 10^6/uL (4.20-5.40); RED CELL DISTRIBUTION WIDTH 13.4 % (12.0-15.0); WHITE BLOOD COUNT 6.4 x10^3/uL (4.8-10.8)
[2021-04-07 08:03] LABS: CALCIUM 9.1 mg/dL (8.5-10.3); CREATININE 0.3 mg/dL (0.4-1.0); CRP - C-REACTIVE PROTEIN 7.2 mg/dL (0-1.0); POTASSIUM 3.3 mmol/L (3.5-5.0)
--- NOTE | 2021-04-07 11:57 | PROVIDER PROGRESS NOTE ---
Subjective - Prog Note Date Prog Note Date: 04/07/21 - Subjective Subjective: She states she no longer wants to receive treatment for the pneumonia. She just wants to go back to [facility]. She is willing to take her blood pressure medications though although only one of them. She wants to be on hospice. She currently denies any pain or difficulty breathing. Current Medications - Current Medications Current Medications: Active Medications Acetaminophen (Acetaminophen 325 Mg Tablet) 650 mg PO Q4HR PRN PRN Reason: Pain 1 to 4 Aspirin (Aspirin Chew 81 Mg Tablet) 81 mg PO DAILY [facility] Last Admin: 04/06/21 12:47 Dose: 81 mg Documented by: Atorvastatin Calcium (Atorvastatin 40 Mg Tablet) 40 mg PO DAILY [facility] Last Admin: 04/06/21 12:47 Dose: 40 mg Documented by: Duloxetine HCl (Duloxetine 30 Mg Capsule) 30 mg PO DAILY [facility] Last Admin: 04/06/21 12:48 Dose: 30 mg Documented by: Enoxaparin Sodium (Enoxaparin 40 Mg/0.4 Ml Syringe) 40 mg SUBQ DAILY [facility] Last Admin: 04/06/21 12:52 Dose: 40 mg Documented by: Guaifenesin (Guaifenesin 600 Mg Tablet) 600 mg PO BID [facility] Last Admin: 04/06/21 21:27 Dose: 600 mg Documented by: Latanoprost (Latanoprost 0.005% Ophth Drops) 1 drops EACHEYE QPM [facility] Last Admin: 04/06/21 21:29 Dose: 1 drops Documented by: Levothyroxine Sodium (Levothyroxine 25 Mcg Tablet) 50 mcg PO QDAC [facility] Last Admin: 04/07/21 06:23 Dose: 50 mcg Documented by: Liothyronine Sodium (Liothyronine 5 Mcg Tablet) 5 mcg PO DAILY [facility] Last Admin: 04/06/21 12:50 Dose: 5 mcg Documented by: Lisinopril (Lisinopril 20 Mg Tablet) 20 mg PO DAILY [facility] Last Admin: 04/06/21 12:51 Dose: 20 mg Documented by: Ondansetron HCl (Ondansetron 4 Mg/2 Ml Vial) 4 mg IVP Q6HR PRN PRN Reason: Nausea / Vomiting Oxycodone HCl (Oxycodone 5 Mg Tablet) 5 mg PO Q6HR PRN PRN Reason: PAIN Saccharomyces Boulardii (Saccharomyces Boulardii 250 Mg Capsule) 250 mg PO BIDWM [facility] Last Admin: 04/06/21 17:07 Dose: 250 mg Documented by: Sodium Chloride (Sodium Chloride Flush 0.9% 10 Ml Syringe) 10 ml IVP PRN PRN PRN Reason: NEEDED PER PROVIDER ORDERS Last Admin: 04/07/21 06:23 Dose: 10 ml Documented by: Sodium Chloride (Sodium Chloride Flush 0.9% 10 Ml Syringe) 10 ml IVP 0100,0900,1700 [facility] Last Admin: 04/07/21 00:15 Dose: 10 ml Documented by: Aspirin Chewable [[place] Aspirin] 81 mg PO DAILY 03/18/21 Atorvastatin Calcium 40 mg PO DAILY 03/18/21 Bisacodyl Supp [Dulcolax Supp] 10 mg SD DAILY PRN 03/18/21 Cholecalciferol [Vitamin D3] 1 cap PO DAILY 03/18/21 DULoxetine [Cymbalta] 30 mg PO DAILY 03/18/21 Esomeprazole Magnesium [Nexium 24Hr] 20 mg PO DAILY 03/18/21 Levothyroxine Sodium [Levothyroxine] 50 mcg PO DAILY 03/18/21 Liothyronine [Cytomel] 5 mcg PO DAILY 03/18/21 Mirtazapine [Remeron] 15 mg PO DAILY 03/18/21 Oxycodone HCl/Acetaminophen [Percocet 5-325 mg Tablet] 1 tab PO Q6HR PRN 03/18/21 Sennosides/Docusate Sodium [Senna Plus 8.6-50 mg Tablet] 1 tab PO BID PRN 03/18/21 Isosorbide Mononitrate [Ismo] 15 mg PO DAILY PM 04/05/21 LORazepam [Ativan] 0.5 mg PO DAILY PM 04/05/21 Latanoprost 0.005% Ophth Drops [Xalatan Ophth Drops] 1 drops EACHEYE DAILY PM 04/05/21 Lisinopril [Zestril] 20 mg PO DAILY 04/05/21 Metoprolol Tartrate [Lopressor] 25 mg PO BID 04/05/21 hydroCHLOROthiazide [Hydrodiuril] 12.5 mg PO DAILY 04/05/21 Objective - Vital Signs/Intake & Output Reviewed Vital Signs: Yes Vital Signs: Vital Signs x48h Temp Pulse Resp BP Pulse Ox 04/07/21 04:45 37.1 C 83 18 138/54 H 93 Intake & Output: Intake & Output 04/04/21 04/05/21 04/06/21 04/07/21 23:59 23:59 23:59 23:59 Intake Total 927.25 2942.750 Output Total 200 1650 450 Balance 727.25 1292.750 -450 - Objective General Appearance: positive: No acute distress, Alert Eyes Bilateral: positive: Normal inspection, Conjunctivae nml ENT: positive: ENT inspection nml Neck: positive: Nml inspection Respiratory: positive: No respiratory distress Neurologic/Psychiatric: negative: Disoriented to person, Disoriented to place - Lab Results Fish Bones: 04/07/21 06:50 04/07/21 06:50 Other Labs: Lab Results x24hrs 04/07/21 04/07/21 Range/Units 06:50 06:50 WBC 6.4 (4.8-10.8) x10^3/uL RBC 3.08 L (4.20-5.40) 10^6/uL Hgb 9.0 L (12.0-16.0) g/dL Hct 30.2 L (37.0-47.0) % MCV 98.1 (81.0-99.0) fL MCH 29.2 (27.0-31.0) pg MCHC 29.8 L (32.0-36.0) g/dL RDW 13.4 (12.0-15.0) % Plt Count 278 (130-450) 10^3/uL MPV 9.4 (7.9-10.8) fL Neut # (Auto) 4.7 (1.5-6.6) 10^3/uL Lymph # (Auto) 1.0 L (1.5-3.5) 10^3/uL Smyth # (Auto) 0.4 (0.0-1.0) 10^3/uL Eos # (Auto) 0.2 (0.0-0.7) 10^3/uL Baso # (Auto) 0.1 (0.0-0.1) 10^3/uL Absolute Nucleated RBC 0.00 x10^3/uL Nucleated RBC % 0.0 /100WBC Sodium 136 (135-145) mmol/L Potassium 3.3 L (3.5-5.0) mmol/L Chloride 83 L (101-111) mmol/L Carbon Dioxide 44 H* (21-32) mmol/L Anion Gap 9.0 (6-13) BUN 18 (6-20) mg/dL Creatinine 0.3 L (0.4-1.0) mg/dL Estimated GFR (MDRD) 211 (>89) Glucose 150 H (70-100) mg/dL Calcium 9.1 (8.5-10.3) mg/dL C-Reactive Protein 7.2 H (0-1.0) mg/dL ABX Reporting Has patient been on IV antibiotics over the past 48 hours?: Yes Sepsis Event Note (H) - Evaluation Current Stage of Sepsis: Ruled out Assessment/Plan - Problem List (1) Aspiration pneumonia Impression: She remains hypoxic requiring 2 L of oxygen. The patient today declines any further treatment with antibiotics. She states at this point her goal is to go back to [facility] and to pass away naturally. She does not want to continue to receive treatment. We will therefore discontinue antibiotics. We will continue supplemental oxygen while she is hospitalized. (2) Comfort measures only status Impression: Has made it quite clear at this point in time that she does not want further treatment for her pneumonia. Her goal is to go back to [facility]. The coordinator mining products did speak with her friend who is not surprised and states that they have been trying to get her connected with hospice/palliative and that is why they brought her to the emergency department initially. Unfortunately do not have hospice or palliative available over the weekend and I am not sure if she truly has a diagnosis that would qualify her for hospice. Nonetheless, we did discuss that we can still focus on her comfort. We will discontinue the antibiotics per the patient's request. She is still agreeable to taking some of her antihypertensives. We will look to discharge her back to [facility] tomorrow and she will need an outpatient palliative care consult. I will provide her with some morphine to take as needed for dyspnea although at this point she does appear comfortable. We did discuss filling out the POLST form but the patient states she had filled but not recently and this is at [facility]. They will be faxing over the POLST form. (3) Severe malnutrition Impression: She has severe malnutrition secondary to poor oral intake and dysphagia. The goal at this point in time is to focus on her comfort. (4) HTN (hypertension) Impression: Her blood pressures been stable in the 130s. She still want to take her antihypertensives for the time being but only one medication and so we will continue her on just the lisinopril. I discontinued her hydrochlorothiazide given the metabolic alkalosis. Have also discontinue the metoprolol given it is twice a day and her focus at this time is comfort. (5) Hx of coronary artery disease Impression: Stable. She still wants to continue some of her medications and so we will continue the aspirin and Lipitor the time being. This can be readdressed in the future if the patient decides to discontinue all of her medications. (6) Hypothyroidism Impression: We will continue her home medications for the time being.
--- NOTE | 2021-04-07 12:04 | ADVANCE CARE PLANNING NOTE ---
Advance Care Planning - Planning Encounter Date: 04/07/21 Time: 11:40 Purpose: To clarify goals of care. Parties in Attendance: The patient and myself. Decisional Capacity of the Patient: She has ability to make her own medical decisions. - Diagnosis for Encounter (1) Aspiration pneumonia Summary: She is admitted with aspiration pneumonia secondary to dysphagia. She has been treated with Unasyn IV empirically. Today she decided to discontinue all antibiotics and to focus just on her comfort. - Encounter Subjective/Patient's Story: She reports going up in [place] where she lived there for 37 years. She was happily and unfortunately her in 2013. She now has been residing here in [place] and currently lives at [facility]. She states that she does not want to keep eating and drinking or taking her meds consistently. She tells me that she has her reasons for this and that she does not want to go through them in depth. Objective/Medical Story: She was admitted for aspiration pneumonia secondary to dysphagia. She has been declining for medical standpoint over the past few months due to dysphagia and malnutrition. The patient and her friends have been discussing palliative/hospice over the past period of time. She even came to our emergency department on April 01 for evaluation given she did not want to eat or drink then. The plan was to try and obtain a hospice consult then but this was difficult to do so during an ER visit is recommended that she continue to follow-up on an outpatient basis.Currently during this hospitalization, she does not want further treatment. Her goal is just to focus on her comfort and to go back home to [facility]. Goals of Care: She has made it quite clear that she does not want antibiotics and the goal is to go back to [facility]. She would like to continue taking some of her home medications for the next few days but ultimately she states that she will want to stop them. Plan: The plan today is to discontinue all of the antibiotics per her request. We will still continue some of her antihypertensives as she would still like to take these for a few days. Her goal is to go back to [facility] and the plan is to discharge her there tomorrow. She will need an outpatient follow-up with palliative/hospice. We did discuss filling out a POLST form she did this a few days ago and we have requested this [facility]. Code Status: Do Not Attempt Resuscitation Time spent on advance care plannin
[2021-04-07] MEDS: SACCHAROMYCES BOULARDII 250 MG CAPSULE PO SCH ×2 (13:39→17:38)
[2021-04-07] MEDS: ATORVASTATIN 40 MG TABLET PO SCH (13:39)
[2021-04-07] MEDS: ASPIRIN CHEW 81 MG TABLET PO SCH (13:39)
[2021-04-07] MEDS: DULoxetine 30 MG CAPSULE PO SCH (13:39)
[2021-04-07] MEDS: LIOTHYRONINE 5 MCG TABLET PO SCH (13:40)
[2021-04-07] MEDS: guaiFENesin 600 MG TABLET PO SCH ×2 (13:40→20:22)
[2021-04-07] MEDS: lisinopriL 20 MG TABLET PO SCH (13:40)
[2021-04-07] MEDS: ENOXAPARIN 40 MG/0.4 ML SYRINGE SUBQ SCH (13:40)
[2021-04-07] MEDS: LATANOPROST 0.005% OPHTH DROPS EACHEYE SCH (20:22)
[2021-04-07] MEDS: LORazepam 0.5 MG TABLET PO PRN (22:42)
[2021-04-08] MEDS: SODIUM CHLORIDE FLUSH 0.9% 10 ML SYRINGE IVP SCH ×3 (02:42→17:31)
[2021-04-08 05:25] LABS: BASOPHILS % (AUTO) 0.6 %; EOSINOPHILS # (AUTO) 0.2 10^3/uL (0.0-0.7); EOSINOPHILS % (AUTO) 3.6 %; HCT - HEMATOCRIT 31.3 % (37.0-47.0); HGB - HEMOGLOBIN 9.1 g/dL (12.0-16.0); LYMPHOCYTES % (AUTO) 15.6 %; MEAN CORPUSCULAR HEMOGLOBIN 28.3 pg (27.0-31.0); MEAN CORPUSCULAR HGB CONC 29.1 g/dL (32.0-36.0); MEAN CORPUSCULAR VOLUME 97.5 fL (81.0-99.0); MEAN PLATELET VOLUME 8.7 fL (7.9-10.8); MONOCYTES # (AUTO) 0.5 10^3/uL (0.0-1.0); MONOCYTES % (AUTO) 7.6 %; NEUTROPHILS # (AUTO) 4.5 10^3/uL (1.5-6.6); NEUTROPHILS % (AUTO) 72.3 %; PLT - PLATELET COUNT 253 10^3/uL (130-450); RED BLOOD COUNT 3.21 10^6/uL (4.20-5.40); RED CELL DISTRIBUTION WIDTH 13.2 % (12.0-15.0); WHITE BLOOD COUNT 6.2 x10^3/uL (4.8-10.8)
[2021-04-08 05:41] LABS: BUN - BLOOD UREA NITROGEN 18 mg/dL (6-20); CALCIUM 9.2 mg/dL (8.5-10.3); CHLORIDE 82 mmol/L (101-111); CREATININE 0.3 mg/dL (0.4-1.0); GFR - MDRD 211 (>89); GLUCOSE 137 mg/dL (70-100); POTASSIUM 3.3 mmol/L (3.5-5.0); SODIUM 136 mmol/L (135-145)
[2021-04-08 05:51] LABS: CARBON DIOXIDE - CO2 > 45 mmol/L (21-32)
[2021-04-08] MEDS: LEVOTHYROXINE 25 MCG TABLET PO SCH (07:00)
[2021-04-08] MEDS: oxyCODONE 5 MG TABLET PO PRN (10:24)
[2021-04-08] MEDS: SACCHAROMYCES BOULARDII 250 MG CAPSULE PO SCH ×2 (10:25→17:31)
[2021-04-08] MEDS: LIOTHYRONINE 5 MCG TABLET PO SCH (10:25)
[2021-04-08] MEDS: ATORVASTATIN 40 MG TABLET PO SCH (10:25)
[2021-04-08] MEDS: DULoxetine 30 MG CAPSULE PO SCH (10:26)
[2021-04-08] MEDS: ASPIRIN CHEW 81 MG TABLET PO SCH (10:26)
[2021-04-08] MEDS: lisinopriL 20 MG TABLET PO SCH (10:26)
--- NOTE | 2021-04-08 10:26 | Discharge Plan ---
"Discharge Plan for SNF / RESIDENTIAL - Discharge Plan And Transition Orders Problem Reviewed?: Yes Disposition: 03 SNF DC/Xfer Condition: Poor Allergies and Adverse Reactions: Allergies Allergy/AdvReac Type Severity Reaction Status Date / Time carvedilol Allergy Unknown Verified 04/05/21 14:24 celecoxib [From Celebrex] Allergy Emesis Verified 04/05/21 14:24 erythromycin base Allergy Emesis Verified 04/05/21 14:24 sucralfate [From Carafate] Allergy Unknown Verified 04/05/21 14:24 trazodone Allergy Unknown Verified 04/05/21 14:24 Health Concerns: The patient was admitted for hypoxia secondary to aspiration pneumonia. She was treated with Unasyn IV initially. She was seen by speech therapy who recommended a dysphagia advanced diet with thin liquids. Her oxygen requirements did improve but she still continued to require 1 to 2 L of oxygen. She was hydrated with normal saline given she had metabolic alkalosis. After 2 days of treatment, the patient decided that she wanted to focus on her comfort only. She declined antibiotics and her preference was to go back to [facility]. She did want a palliative and hospice referral but unfortunate given it was the weekend, we were unable to obtain this. We did stop her antibiotics and we decreased some of her home medications per her request. She will now be discharged back to [facility] and it is recommended that she have palliative care consult soon as possible. I am not sure that she has a diagnosis that would qualify her for hospice but hospice can be considered. I have provided her with a prescription for morphine to take as needed for pain or dyspnea. Plan of Treatment: The goal is to focus on her comfort. She has a POLST form which reflects this. I have provided her a prescription for morphine to take as needed. She will not be prescribed antibiotics per her request. A palliative care referral is recommended. - SNF / RESIDENTIAL Transition Orders Admit to (Facility): [facility] Medicare Certification Statement: I certify that [facility] care is medically necessary on a continuing basis for any of the conditions for which she/he is receiving care during hospitalization. Notify PCP of admission and forward orders to primary provider for signature. Other Notification Orders: Call PCP immediately if patient develops dyspnea, chest pain/tightness or edema. Additional Bowel Program Orders: If no BM after 2 days, nurse may give M.O.M. 30ml PO PRN and/or ducolax Supp 1 MN and/or CARLEE 250mg P.O., and/or senna 1-2 tabs PO. On day 3 nurse may give repeat above order until residents constipation is resolved. Medication Orders: PLEASE REFER TO THE DISCHARGE MEDICATION LIST. - Medications New Prescriptions: Morphine Sulfate [Morphine Sulf Oral (Roxanol)] 5 mg PO Q4H PRN #30 ml PRN Reason: Pain/Dyspnea - Diet Texture: Dysphagia mech Liquids: Thin - Therapies | Activity Therapy: Evaluation | Treat if indicated: Speech Follow Up: She will need follow-up with your primary care provider in 1 week. It is also recommended that referral to palliative care and hospice be considered."
[2021-04-08] MEDS: guaiFENesin 600 MG TABLET PO SCH ×2 (10:27→21:22)
[2021-04-08] MEDS: ENOXAPARIN 40 MG/0.4 ML SYRINGE SUBQ SCH (10:28)
--- NOTE | 2021-04-08 10:30 | DISCHARGE SUMMARY ---
"<DarrianElder - Last Filed: 04/09/21 07:36> Discharge Summary Admit Date: 04/05/21 Discharge Date: 04/08/21 Discharging Provider: Elder Colmenares Code Status: Do Not Attempt Resuscitation Condition at Discharge: Serious Discharge Disposition: 50 Hospice/Home DC/Xfer - DIAGNOSES Admission Diagnoses: Respiratory failure with hypoxia Aspiration pneumonia Dysphagia Severe malnutrition Hypertension History of coronary artery disease Hypothyroidism Depression Heart murmur Dehydration Discharge Diagnoses with Status of Each Condition: Acute respiratory failure with hypoxia - improved. Aspiration pneumonia - ongoing. Comfort measures only status - stable. Severe malnutrition - stable. Hypertension - stable. History of coronary artery disease - stable. Hypothyroidism - stable. - HPI History of Present Illness: H&P per DAVON Ryan: This is a 86-year-old woman with A past medical history Significant for severe malnutrition, congestive heart failure, chronic pain, coronary artery disease, acid reflux, hypertension, hypothyroidism, previous NSTEMI, osteoporosis, who present ER complain of dysphagia. Pt report she can not swallow since today lunch. she report she had lots of cough since that. Patient reported she always has swallowing issue and cough. Nurse Can did bed side swallowing test, pt pass through but with mild cough. we will offer pt Dysphagia mechanical diet now. pt was noted to have significantly hypoxic with 70% sats on room air prior to pt arrival. Patient denies fever, chill, shortness of breath, chest pain, headache, focal neuro deficit, unilateral weakness. she report she got Covid 19 vaccinated, and her Covid 19 test is negative in ER. Chest x-ray show early pneumonia, concern of aspiration. In routine laboratory tests that show patient had high carbon dioxide. In the ER, patient was afebrile but the patient needed 4 L oxygen support to have 96% sats. Patient is alert orientated +4. Discussed the care goal with the patient, patient clearly stated she want DNR/DNI, nurse Can is at the bedside at the time. pt state her friend Anastasia Baker is her DPOA. - CONSULTS | PROCEDURES Consultations: Social Work - HOSPITAL COURSE Hospital Course: The patient was admitted for hypoxia secondary to aspiration pneumonia. She was treated with Unasyn IV initially. She was seen by speech therapy who recommended a dysphagia advanced diet with thin liquids. Her oxygen requiremen ts did improve but she still continued to require 1 to 2 L of oxygen. She was hydrated with normal saline given she had metabolic alkalosis. After 2 days of treatment, the patient decided that she wanted to focus on her comfort only. She declined antibiotics and her preference was to go back to [facility]. She did want a palliative and hospice referral but unfortunately given it was the weekend, we were unable to obtain this. We did stop her antibiotics and we discontinued some of her home medications per her request to decrease her pill burden. She will now be discharged back to [facility] and it is recommended that she have palliative care consult soon as possible. I am not sure that she has a diagnosis that would qualify her for hospice but hospice can be considered. I have provided her with a prescription for morphine to take as needed for pain or dyspnea. We have discontinued her home aspirin, Lipitor, hydrochlorothiazide, Imdur, metoprolol to decrease her pill burden as mentioned above. She had informed me that she was discontinue the rest of her medications in a few days but for the time being would like to still take at least one blood pressure medication. - ALLERGIES Allergies/Adverse Reactions: Allergies Allergy/AdvReac Type Severity Reaction Status Date / Time carvedilol Allergy Unknown Verified 04/05/21 14:24 celecoxib [From Celebrex] Allergy Emesis Verified 04/05/21 14:24 erythromycin base Allergy Emesis Verified 04/05/21 14:24 sucralfate [From Carafate] Allergy Unknown Verified 04/05/21 14:24 trazodone Allergy Unknown Verified 04/05/21 14:24 - MEDICATIONS Home Medications: Ambulatory Orders Medication Instructions Recorded Confirmed Bisacodyl Supp [Dulcolax Supp] 10 mg NE DAILY PRN 03/18/21 04/05/21 DULoxetine [Cymbalta] 30 mg PO DAILY 03/18/21 04/05/21 Esomeprazole Magnesium [Nexium 20 mg PO DAILY 03/18/21 04/05/21 24Hr] Levothyroxine Sodium 50 mcg PO DAILY 03/18/21 04/05/21 [Levothyroxine] Liothyronine [Cytomel] 5 mcg PO DAILY 03/18/21 04/05/21 Sennosides/Docusate Sodium [Senna 1 tab PO BID PRN 03/18/21 04/05/21 Plus 8.6-50 mg Tablet] LORazepam [Ativan] 0.5 mg PO DAILY PM 04/05/21 04/05/21 Latanoprost 0.005% Ophth Drops 1 drops EACHEYE DAILY PM 04/05/21 04/05/21 [Xalatan Ophth Drops] Lisinopril [Zestril] 20 mg PO DAILY 04/05/21 04/05/21 Morphine Sulfate [Morphine Sulf 5 mg PO Q4H PRN #30 ml 04/08/21 Oral (Roxanol)] - PHYSICAL EXAM AT DISCHARGE General Appearance: positive: Alert, Other (Appears malnourished and frail.) Eyes Bilateral: positive: Normal inspection, Conjunctivae nml ENT: positive: ENT inspection nml, Other (Nasal cannula in place.) Neck: positive: Nml inspection Respiratory: positive: No respiratory distress. negative: Wheezes, Rales Cardiovascular: positive: Regular rate & rhythm. negative: Tachycardia Abdomen: positive: Non-tender, No distention. negative: Tenderness Skin: positive: Warm, Dry Extremities: positive: No pedal edema Neurologic/Psychiatric: negative: Disoriented to person, Disoriented to place - LABS Result Diagrams: 04/08/21 05:14 04/08/21 05:14 - DIAGNOSTIC IMAGING Diagnostic Imaging Results: Final report reviewed - SEPSIS Current Stage of Sepsis: Ruled out - FOLLOW UP Follow Up: She will need follow-up with a primary care provider in 1 week. Palliative consultation is recommended. - TIME SPENT Time Spent in Discharge (Minutes): 33 <Suazo - Last Filed: 04/12/21 18:44> Discharge Summary - DIAGNOSES Discharge Diagnoses with Status of Each Condition: encounter of hospice care - HOSPITAL COURSE Hospital Course: pt had hospice care consultation, hospice care provider accept pt for hospice care in [facility]. appreciate hospice care consultation. - LABS Result Diagrams: 04/08/21 05:14 04/08/21 05:14 - FOLLOW UP Follow Up: followup with hospice care in [facility]"
--- NOTE | 2021-04-08 13:38 | PROVIDER PROGRESS NOTE ---
Subjective - Prog Note Date Prog Note Date: 04/08/21 - Subjective Subjective: She denies any pain or difficulty breathing. She is looking forward to leaving the hospital. Current Medications - Current Medications Current Medications: Active Medications Acetaminophen (Acetaminophen 325 Mg Tablet) 650 mg PO Q4HR PRN PRN Reason: Pain 1 to 4 Aspirin (Aspirin Chew 81 Mg Tablet) 81 mg PO DAILY [facility] Last Admin: 04/08/21 10:26 Dose: 81 mg Documented by: Atorvastatin Calcium (Atorvastatin 40 Mg Tablet) 40 mg PO DAILY [facility] Last Admin: 04/08/21 10:25 Dose: 40 mg Documented by: Duloxetine HCl (Duloxetine 30 Mg Capsule) 30 mg PO DAILY [facility] Last Admin: 04/08/21 10:26 Dose: 30 mg Documented by: Enoxaparin Sodium (Enoxaparin 40 Mg/0.4 Ml Syringe) 40 mg SUBQ DAILY [facility] Last Admin: 04/08/21 10:28 Dose: 40 mg Documented by: Guaifenesin (Guaifenesin 600 Mg Tablet) 600 mg PO BID [facility] Last Admin: 04/08/21 10:27 Dose: 600 mg Documented by: Latanoprost (Latanoprost 0.005% Ophth Drops) 1 drops EACHEYE QPM [facility] Last Admin: 04/07/21 20:22 Dose: 1 drops Documented by: Levothyroxine Sodium (Levothyroxine 25 Mcg Tablet) 50 mcg PO QDAC [facility] Last Admin: 04/08/21 07:00 Dose: 50 mcg Documented by: Liothyronine Sodium (Liothyronine 5 Mcg Tablet) 5 mcg PO DAILY [facility] Last Admin: 04/08/21 10:25 Dose: 5 mcg Documented by: Lisinopril (Lisinopril 20 Mg Tablet) 20 mg PO DAILY [facility] Last Admin: 04/08/21 10:26 Dose: 20 mg Documented by: Lorazepam (Lorazepam 0.5 Mg Tablet) 0.5 mg PO QPM PRN PRN Reason: Insomnia Last Admin: 04/07/21 22:42 Dose: 0.5 mg Documented by: Ondansetron HCl (Ondansetron 4 Mg/2 Ml Vial) 4 mg IVP Q6HR PRN PRN Reason: Nausea / Vomiting Oxycodone HCl (Oxycodone 5 Mg Tablet) 5 mg PO Q6HR PRN PRN Reason: PAIN Last Admin: 04/08/21 10:24 Dose: 5 mg Documented by: Saccharomyces Boulardii (Saccharomyces Boulardii 250 Mg Capsule) 250 mg PO BIDWM [facility] Last Admin: 04/08/21 10:25 Dose: 250 mg Documented by: Sodium Chloride (Sodium Chloride Flush 0.9% 10 Ml Syringe) 10 ml IVP PRN PRN PRN Reason: NEEDED PER PROVIDER ORDERS Last Admin: 04/07/21 06:23 Dose: 10 ml Documented by: Sodium Chloride (Sodium Chloride Flush 0.9% 10 Ml Syringe) 10 ml IVP 0100,0900,1700 [facility] Last Admin: 04/08/21 02:42 Dose: Not Given Documented by: Bisacodyl Supp [Dulcolax Supp] 10 mg [place] DAILY PRN 03/18/21 DULoxetine [Cymbalta] 30 mg PO DAILY 03/18/21 Esomeprazole Magnesium [Nexium 24Hr] 20 mg PO DAILY 03/18/21 Levothyroxine Sodium [Levothyroxine] 50 mcg PO DAILY 03/18/21 Liothyronine [Cytomel] 5 mcg PO DAILY 03/18/21 Sennosides/Docusate Sodium [Senna Plus 8.6-50 mg Tablet] 1 tab PO BID PRN 03/18/21 LORazepam [Ativan] 0.5 mg PO DAILY PM 04/05/21 Latanoprost 0.005% Ophth Drops [Xalatan Ophth Drops] 1 drops EACHEYE DAILY PM 0 04/05/21 Lisinopril [Zestril] 20 mg PO DAILY 04/05/21 Objective - Vital Signs/Intake & Output Reviewed Vital Signs: Yes Vital Signs: Vital Signs x48h Temp Pulse Resp BP Pulse Ox 04/08/21 12:00 36.5 C 85 18 162/78 H 99 04/08/21 08:00 36.4 C L 80 16 150/68 H 94 Intake & Output: Intake & Output 04/05/21 04/06/21 04/07/21 04/08/21 23:59 23:59 23:59 23:59 Intake Total 927.25 2942.750 720 0 Output Total 200 1650 1100 125 Balance 727.25 1292.750 -380 -125 - Objective General Appearance: positive: No acute distress, Alert, Other (Appears malnourished and frail.) Eyes Bilateral: positive: Normal inspection ENT: positive: ENT inspection nml, Other (Nasal cannula in place.) Neck: positive: Nml inspection Respiratory: positive: No respiratory distress. negative: Wheezes, Rales Cardiovascular: positive: Regular rate & rhythm. negative: Tachycardia Abdomen: positive: Non-tender, No distention. negative: Tenderness Skin: positive: Warm, Dry Extremities: positive: No pedal edema Neurologic/Psychiatric: negative: Disoriented to person, Disoriented to place - Lab Results Fish Bones: 04/08/21 05:14 04/08/21 05:14 Other Labs: Lab Results x24hrs 04/08/21 04/08/21 Range/Units 05:14 05:14 WBC 6.2 (4.8-10.8) x10^3/uL RBC 3.21 L (4.20-5.40) 10^6/uL Hgb 9.1 L (12.0-16.0) g/dL Hct 31.3 L (37.0-47.0) % MCV 97.5 (81.0-99.0) fL MCH 28.3 (27.0-31.0) pg MCHC 29.1 L (32.0-36.0) g/dL RDW 13.2 (12.0-15.0) % Plt Count 253 (130-450) 10^3/uL MPV 8.7 (7.9-10.8) fL Neut # (Auto) 4.5 (1.5-6.6) 10^3/uL Lymph # (Auto) 1.0 L (1.5-3.5) 10^3/uL [place] # (Auto) 0.5 (0.0-1.0) 10^3/uL Eos # (Auto) 0.2 (0.0-0.7) 10^3/uL Baso # (Auto) 0.0 (0.0-0.1) 10^3/uL Absolute Nucleated RBC 0.00 x10^3/uL Nucleated RBC % 0.0 /100WBC Sodium 136 (135-145) mmol/L Potassium 3.3 L (3.5-5.0) mmol/L Chloride 82 L (101-111) mmol/L Carbon Dioxide > 45 H* (21-32) mmol/L Anion Gap 8.0 (6-13) BUN 18 (6-20) mg/dL Creatinine 0.3 L (0.4-1.0) mg/dL Estimated GFR (MDRD) 211 (>89) Glucose 137 H (70-100) mg/dL Calcium 9.2 (8.5-10.3) mg/dL C-Reactive Protein 4.0 H (0-1.0) mg/dL ABX Reporting Has patient been on IV antibiotics over the past 48 hours?: No Sepsis Event Note (H) - Evaluation Current Stage of Sepsis: Ruled out Assessment/Plan - Problem List (1) Aspiration pneumonia Impression: Her oxygen requirements have improved to 1 L and she will occasionally will need oxygen given her sats in the high 90s on this. We have discontinued antibiotics per her request. The plan is to discharge her home with the focus on comfort but unfortunately, [facility] cannot take her back today given she had two person assist. Will discuss with hospice tomorrow if she would be an appropriate candidate for them otherwise she may need respite care. (2) Comfort measures only status Impression: Her focus is comfort and the goal is to discharge her once we have a safe discharge plan. She will benefit from a palliative care consult on outpatient basis. Will discuss with hospice tomorrow if she would be an appropriate patient for them although I am not sure she has a diagnosis that would qualify her. Her POLST form reflects her wishes. (3) Severe malnutrition Impression: We will continue to encourage oral intake as tolerated but the goal is comfort. (4) HTN (hypertension) Impression: We are only continuing her lisinopril per her request. (5) Hx of coronary artery disease Impression: We will continue her aspirin and Lipitor while she is hospitalized but these will be discontinued on discharge to decrease her pill burden. (6) Hypothyroidism Impression: Continue her home medications.
[2021-04-08] MEDS ORDERED: MAGNESIUM HYDROXIDE 2,400 MG/30 ML UDC PO ONE (14:24)
[2021-04-08] MEDS: LATANOPROST 0.005% OPHTH DROPS EACHEYE SCH (21:21)
[2021-04-08] MEDS: LORazepam 0.5 MG TABLET PO PRN (21:21)
[2021-04-09] MEDS: SODIUM CHLORIDE FLUSH 0.9% 10 ML SYRINGE IVP SCH ×4 (00:15→23:22)
[2021-04-09] MEDS: oxyCODONE 5 MG TABLET PO PRN (04:27)
[2021-04-09] MEDS: LEVOTHYROXINE 25 MCG TABLET PO SCH (06:33)
[2021-04-09] MEDS: ENOXAPARIN 40 MG/0.4 ML SYRINGE SUBQ SCH (06:33)
[2021-04-09] MEDS: ATORVASTATIN 40 MG TABLET PO SCH (06:33)
[2021-04-09] MEDS: SACCHAROMYCES BOULARDII 250 MG CAPSULE PO SCH ×2 (06:33→19:02)
[2021-04-09] MEDS: DULoxetine 30 MG CAPSULE PO SCH (06:34)
[2021-04-09] MEDS: lisinopriL 20 MG TABLET PO SCH (06:34)
[2021-04-09] MEDS: LIOTHYRONINE 5 MCG TABLET PO SCH (06:34)
[2021-04-09] MEDS: ASPIRIN CHEW 81 MG TABLET PO SCH (06:34)
[2021-04-09] MEDS: ACETAMINOPHEN 325 MG TABLET PO PRN ×2 (06:36→20:38)
[2021-04-09] MEDS: guaiFENesin 600 MG TABLET PO SCH ×2 (06:36→20:38)
[2021-04-09] MEDS ORDERED: BISACODYL 10 MG SUPP PR ONE (09:58)
[2021-04-09] MEDS: SENNA 8.6 MG TABLET PO SCH (11:03)
[2021-04-09] MEDS: DOCUSATE SODIUM 250 MG CAPSULE PO SCH (11:03)
[2021-04-09] MEDS: polyethylene glycoL 3350 17 GM PACKET PO SCH (11:04)
--- NOTE | 2021-04-09 18:30 | PROVIDER PROGRESS NOTE ---
Subjective - Prog Note Date Prog Note Date: 04/09/21 - Subjective Subjective: She denies any pain. She just wants to go home as soon as possible. She has not been eating or drinking very much at all. Current Medications - Current Medications Current Medications: Active Medications Acetaminophen (Acetaminophen 325 Mg Tablet) 650 mg PO Q4HR PRN PRN Reason: Pain 1 to 4 Last Admin: 04/09/21 06:36 Dose: 650 mg Documented by: Aspirin (Aspirin Chew 81 Mg Tablet) 81 mg PO DAILY [facility] Last Admin: 04/09/21 06:34 Dose: 81 mg Documented by: Atorvastatin Calcium (Atorvastatin 40 Mg Tablet) 40 mg PO DAILY [facility] Last Admin: 04/09/21 06:33 Dose: 40 mg Documented by: Docusate Sodium (Docusate Sodium 250 Mg Capsule) 250 - 500 mg PO DAILY [facility] Last Admin: 04/09/21 11:03 Dose: 500 mg Documented by: Duloxetine HCl (Duloxetine 30 Mg Capsule) 30 mg PO DAILY [facility] Last Admin: 04/09/21 06:34 Dose: 30 mg Documented by: Enoxaparin Sodium (Enoxaparin 40 Mg/0.4 Ml Syringe) 40 mg SUBQ DAILY [facility] Last Admin: 04/09/21 06:33 Dose: 40 mg Documented by: Guaifenesin (Guaifenesin 600 Mg Tablet) 600 mg PO BID [facility] Last Admin: 04/09/21 06:36 Dose: 600 mg Documented by: Latanoprost (Latanoprost 0.005% Ophth Drops) 1 drops EACHEYE QPM [facility] Last Admin: 04/08/21 21:21 Dose: 1 drops Documented by: Levothyroxine Sodium (Levothyroxine 25 Mcg Tablet) 50 mcg PO QDAC [facility] Last Admin: 04/09/21 06:33 Dose: 50 mcg Documented by: Liothyronine Sodium (Liothyronine 5 Mcg Tablet) 5 mcg PO DAILY [facility] Last Admin: 04/09/21 06:34 Dose: 5 mcg Documented by: Lisinopril (Lisinopril 20 Mg Tablet) 20 mg PO DAILY [facility] Last Admin: 04/09/21 06:34 Dose: 20 mg Documented by: Lorazepam (Lorazepam 0.5 Mg Tablet) 0.5 mg PO QPM PRN PRN Reason: Insomnia Last Admin: 04/08/21 21:21 Dose: 0.5 mg Documented by: Ondansetron HCl (Ondansetron 4 Mg/2 Ml Vial) 4 mg IVP Q6HR PRN PRN Reason: Nausea / Vomiting Oxycodone HCl (Oxycodone 5 Mg Tablet) 5 mg PO Q6HR PRN PRN Reason: PAIN Last Admin: 04/09/21 04:27 Dose: 5 mg Documented by: Polyethylene Glycol (Polyethylene Glycol 3350 17 Gm Packet) 17 gm PO DAILY [facility] Last Admin: 04/09/21 11:04 Dose: 17 gm Documented by: Saccharomyces Boulardii (Saccharomyces Boulardii 250 Mg Capsule) 250 mg PO BIDWM [facility] Last Admin: 04/09/21 06:33 Dose: 250 mg Documented by: Senna (Senna 8.6 Mg Tablet) 8.6 - 17.2 mg PO DAILY [facility] Last Admin: 04/09/21 11:03 Dose: 17.2 mg Documented by: Sodium Chloride (Sodium Chloride Flush 0.9% 10 Ml Syringe) 10 ml IVP PRN PRN PRN Reason: NEEDED PER PROVIDER ORDERS Last Admin: 04/07/21 06:23 Dose: 10 ml Documented by: Sodium Chloride (Sodium Chloride Flush 0.9% 10 Ml Syringe) 10 ml IVP 0100,0900,1700 [facility] Last Admin: 04/09/21 06:40 Dose: Not Given Documented by: Bisacodyl Supp [Dulcolax Supp] 10 mg [place] DAILY PRN 03/18/21 DULoxetine [Cymbalta] 30 mg PO DAILY 03/18/21 Esomeprazole Magnesium [Nexium 24Hr] 20 mg PO DAILY 03/18/21 Levothyroxine Sodium [Levothyroxine] 50 mcg PO DAILY 03/18/21 Liothyronine [Cytomel] 5 mcg PO DAILY 03/18/21 Sennosides/Docusate Sodium [Senna Plus 8.6-50 mg Tablet] 1 tab PO BID PRN 03/18/21 LORazepam [Ativan] 0.5 mg PO DAILY PM 04/05/21 Latanoprost 0.005% Ophth Drops [Xalatan Ophth Drops] 1 drops EACHEYE DAILY PM 04/05/21 Lisinopril [Zestril] 20 mg PO DAILY 04/05/21 Objective - Vital Signs/Intake & Output Reviewed Vital Signs: Yes Vital Signs: Vital Signs x48h Temp Pulse Resp BP Pulse Ox 04/09/21 15:40 36.6 C 104 H 16 166/77 H 97 Intake & Output: Intake & Output 04/06/21 04/07/21 04/08/21 04/09/21 23:59 23:59 23:59 23:59 Intake Total 2942.750 720 420 400 Output Total 1650 1100 950 500 Balance 1292.750 -380 -530 -100 - Objective General Appearance: positive: No acute distress, Alert, Other (Appears frail.) Eyes Bilateral: positive: Conjunctivae nml ENT: positive: ENT inspection nml Neck: positive: Nml inspection Respiratory: positive: No respiratory distress - Lab Results Fish Bones: 04/08/21 05:14 04/08/21 05:14 ABX Reporting Has patient been on IV antibiotics over the past 48 hours?: No Sepsis Event Note (H) - Evaluation Current Stage of Sepsis: Ruled out Assessment/Plan - Problem List (1) Aspiration pneumonia Impression: We did initially treat her with antibiotics but these have since been di scontinued per her request. We are trying to discharge her on hospice but [facility] did not accept her due to her being a two-person assist. We are currently working on a safe discharge plan. (2) Comfort measures only status Impression: The goal is comfort and we have discontinued most of her medications per her request. Hospice evaluate her today and appreciate their input. (3) Severe malnutrition Impression: She has made it clear she does not want to eat or drink and her goal is comfort. (4) HTN (hypertension) Impression: We are only continuing lisinopril for the time being as she wanted to be on one antihypertensive. (5) Hx of coronary artery disease Impression: We have discontinued her home medications per her request. (6) Hypothyroidism Impression: We are continuing her thyroid medications for the time being.
[2021-04-09] MEDS: LATANOPROST 0.005% OPHTH DROPS EACHEYE SCH (20:37)
[2021-04-09] MEDS: LORazepam 0.5 MG TABLET PO PRN (20:38)
[2021-04-10] MEDS: LEVOTHYROXINE 25 MCG TABLET PO SCH ×2 (06:31→06:55)
[2021-04-10] MEDS: SENNA 8.6 MG TABLET PO SCH (07:53)
[2021-04-10] MEDS: SACCHAROMYCES BOULARDII 250 MG CAPSULE PO SCH ×2 (07:53→17:14)
[2021-04-10] MEDS: DOCUSATE SODIUM 250 MG CAPSULE PO SCH (07:53)
[2021-04-10] MEDS: guaiFENesin 600 MG TABLET PO SCH ×2 (07:54→20:58)
[2021-04-10] MEDS: lisinopriL 20 MG TABLET PO SCH (07:54)
[2021-04-10] MEDS: DULoxetine 30 MG CAPSULE PO SCH (07:54)
[2021-04-10] MEDS: ATORVASTATIN 40 MG TABLET PO SCH (07:54)
[2021-04-10] MEDS: ASPIRIN CHEW 81 MG TABLET PO SCH (07:55)
[2021-04-10] MEDS: LIOTHYRONINE 5 MCG TABLET PO SCH (07:55)
[2021-04-10] MEDS: polyethylene glycoL 3350 17 GM PACKET PO SCH (07:59)
[2021-04-10] MEDS: ENOXAPARIN 40 MG/0.4 ML SYRINGE SUBQ SCH (07:59)
[2021-04-10] MEDS: SODIUM CHLORIDE FLUSH 0.9% 10 ML SYRINGE IVP SCH ×2 (08:00→17:11)
--- NOTE | 2021-04-10 11:47 | PROVIDER PROGRESS NOTE ---
Assessment/Plan - Problem List (2) Aspiration pneumonia Assessment/Plan: Patient is alert orientated +4. We did initially treat her with antibiotics but these have since been discontinued per her request. [facility] accepted patient for hospice care. Plan to discharge patient tomorrow, And hospice care follow-up with the patient. (2) Comfort measures only status Impression: The goal is comfort and we have discontinued most of her medications per her request. Hospice evaluate her today and appreciate their input. (3) Severe malnutrition Impression: She has made it clear she does not want to eat or drink and her goal is comfort. (4) HTN (hypertension) Impression: We are only continuing lisinopril for the time being as she wanted to be on one antihypertensive. (5) Hx of coronary artery disease Impression: We have discontinued her home medications per her request. (6) Hypothyroidism Impression: We are continuing her thyroid medications for the time being. (7)encounter of hospice care Patient is alert and orientated +4 on today. She continue to decline to eat and drink On today.Hospice provider already saw the patient. [facility] already accepted patient for hospice care, Plan to DC patient tomorrow. - Current Meds Current Meds: Current Medications Generic Name Dose Route Start Last Admin Trade Name Freq PRN Reason Stop Dose Admin Acetaminophen 650 mg 04/05/21 15:41 04/09/21 20:38 Acetaminophen 325 Mg Tablet PO 650 mg Q4HR PRN Administration Pain 1 to 4 Aspirin 81 mg 04/06/21 09:00 04/10/21 07:55 Aspirin Chew 81 Mg Tablet PO 81 mg DAILY [facility] Administration Atorvastatin Calcium 40 mg 04/06/21 09:00 04/10/21 07:54 Atorvastatin 40 Mg Tablet PO 40 mg DAILY [facility] Administration Docusate Sodium 250 - 500 mg 04/09/21 10:00 04/10/21 07:53 Docusate Sodium 250 Mg Capsule PO 250 mg DAILY [facility] Administration Duloxetine HCl 30 mg 04/06/21 09:00 04/10/21 07:54 Duloxetine 30 Mg Capsule PO 30 mg DAILY [facility] Administration Enoxaparin Sodium 40 mg 04/06/21 09:00 04/10/21 07:59 Enoxaparin 40 Mg/0.4 Ml Syringe SUBQ 40 mg DAILY [facility] Administration Guaifenesin 600 mg 04/06/21 14:00 04/10/21 07:54 Guaifenesin 600 Mg Tablet PO 600 mg BID [facility] Administration Latanoprost 1 drops 04/05/21 21:00 04/09/21 20:37 Latanoprost 0.005% Ophth Drops EACHEYE 1 drops QPM [facility] Administration Levothyroxine Sodium 50 mcg 04/06/21 07:00 04/10/21 06:55 Levothyroxine 25 Mcg Tablet PO 50 mcg QDAC [facility] Administration Liothyronine Sodium 5 mcg 04/06/21 09:00 04/10/21 07:55 Liothyronine 5 Mcg Tablet PO 5 mcg DAILY [facility] Administration Lisinopril 20 mg 04/06/21 09:00 04/10/21 07:54 Lisinopril 20 Mg Tablet PO 20 mg DAILY [facility] Administration Lorazepam 0.5 mg 04/07/21 22:18 04/09/21 20:38 Lorazepam 0.5 Mg Tablet PO 0.5 mg QPM PRN Administration Insomnia Oxycodone HCl 5 mg 04/05/21 16:16 04/09/21 04:27 Oxycodone 5 Mg Tablet PO 5 mg Q6HR PRN Administration PAIN Polyethylene Glycol 17 gm 04/09/21 10:00 04/10/21 07:59 Polyethylene Glycol 3350 17 Gm Packet PO Not Given DAILY [facility] Saccharomyces Boulardii 250 mg 04/06/21 08:00 04/10/21 07:53 Saccharomyces Boulardii 250 Mg Capsule PO 250 mg BIDWM [facility] Administration Senna 8.6 - 17.2 mg 04/09/21 10:00 04/10/21 07:53 Senna 8.6 Mg Tablet PO 8.6 mg DAILY [facility] Administration Sodium Chloride 10 ml 04/05/21 15:41 04/07/21 06:23 Sodium Chloride Flush 0.9% 10 Ml Syringe IVP 10 ml PRN PRN Administration NEEDED PER PROVIDER ORDERS Sodium Chloride 10 ml 04/05/21 17:00 04/10/21 08:00 Sodium Chloride Flush 0.9% 10 Ml Syringe IVP Not Given 0100,0900,1700 [facility] - Lab Result Fish Bone Diagrams: 04/08/21 05:14 04/08/21 05:14 - Additional Planning My Orders: My Active Orders 04/10/21 RESPIRATORY PCR PANEL Urgent Subjective - Subjective Patient Reports: Resting Comfortably Objective Vital Signs: Vital Signs - 24 hr 04/09/21 04/10/21 04/10/21 15:40 00:00 00:05 Temperature 36.6 C 37 C Heart Rate [ 104 H 110 H Brachial] Respiratory 16 18 Rate Blood Pressure 166/77 H 165/84 H [Right Brachial artery] O2 Saturation 97 87 L 97 04/10/21 04/10/21 01:59 07:39 Temperature 36.9 C Heart Rate [ 104 H Brachial] Respiratory 16 Rate Blood Pressure 169/87 H [Right Brachial artery] O2 Saturation 94 95 Oxygen O2 Source Room air Oxygen Flow Rate 4 I&O (Last 24 Hrs): Intake and Output Totals x24h 04/08/21 04/09/21 04/10/21 23:59 23:59 23:59 Intake Total 420 400 Output Total 950 850 550 Balance -530 -450 -550 General: Alert, Oriented x3, Cooperative, No acute distress HEENT: Atraumatic Neck: Supple Lymphatic: no adenopathy Neuro: Alert, Non Focal, Oriented Times 3 Cardiovascular: Regular rate, Normal S1, Normal S2 Respiratory: Chest non-tender, No respiratory distress Abdomen: Normal bowel sounds, Soft Extremities: Normal pulses - Results Results: Laboratory Results WBC 6.2 x10^3/uL (4.8-10.8) 04/08/21 05:14 RBC 3.21 10^6/uL (4.20-5.40) L 04/08/21 05:14 Hgb 9.1 g/dL (12.0-16.0) L 04/08/21 05:14 Hct 31.3 % (37.0-47.0) L 04/08/21 05:14 MCV 97.5 fL (81.0-99.0) 04/08/21 05:14 MCH 28.3 pg (27.0-31.0) 04/08/21 05:14 MCHC 29.1 g/dL (32.0-36.0) L 04/08/21 05:14 RDW 13.2 % (12.0-15.0) 04/08/21 05:14 Plt Count 253 10^3/uL (130-450) 04/08/21 05:14 MPV 8.7 fL (7.9-10.8) 04/08/21 05:14 Neut # (Auto) 4.5 10^3/uL (1.5-6.6) 04/08/21 05:14 Lymph # (Auto) 1.0 10^3/uL (1.5-3.5) L 04/08/21 05:14 [place] # (Auto) 0.5 10^3/uL (0.0-1.0) 04/08/21 05:14 Eos # (Auto) 0.2 10^3/uL (0.0-0.7) 04/08/21 05:14 Baso # (Auto) 0.0 10^3/uL (0.0-0.1) 04/08/21 05:14 Absolute Nucleated RBC 0.00 x10^3/uL 04/08/21 05:14 Nucleated RBC % 0.0 /100WBC 04/08/21 05:14 Sodium 136 mmol/L (135-145) 04/08/21 05:14 Potassium 3.3 mmol/L (3.5-5.0) L 04/08/21 05:14 Chloride 82 mmol/L (101-111) L 04/08/21 05:14 Carbon Dioxide > 45 mmol/L (21-32) H* 04/08/21 05:14 Anion Gap 8.0 (6-13) 04/08/21 05:14 BUN 18 mg/dL (6-20) 04/08/21 05:14 Creatinine 0.3 mg/dL (0.4-1.0) L 04/08/21 05:14 Estimated GFR (MDRD) 211 (>89) 04/08/21 05:14 Glucose 137 mg/dL (70-100) H 04/08/21 05:14 Calcium 9.2 mg/dL (8.5-10.3) 04/08/21 05:14 C-Reactive Protein 4.0 mg/dL (0-1.0) H 04/08/21 05:14 TSH 1.75 uIU/mL (0.34-5.60) 04/05/21 14:33 Nasal Adenovirus (PCR) NOT DETECTED 04/05/21 15:25 Nasal B. parapertussis DNA (PCR) NOT DETECTED 04/05/21 15:25 Nasal Coronavir 229E PCR NOT DETECTED 04/05/21 15:25 Nasal Coronavir HKU1 PCR NOT DETECTED 04/05/21 15:25 Nasal Coronavir NL63 PCR NOT DETECTED 04/05/21 15:25 Nasal Coronavir OC43 PCR NOT DETECTED 04/05/21 15:25 Nasal Enterovir/Rhinovir PCR NOT DETECTED 04/05/21 15:25 Nasal Influenza B PCR NOT DETECTED 04/05/21 15:25 Nasal Influenza A PCR NOT DETECTED 04/05/21 15:25 Nasal Parainfluen 1 PCR NOT DETECTED 04/05/21 15:25 Nasal Parainfluen 2 PCR NOT DETECTED 04/05/21 15:25 Nasal Parainfluen 3 PCR NOT DETECTED 04/05/21 15:25 Nasal Parainfluen 4 PCR NOT DETECTED 04/05/21 15:25 Nasal RSV (PCR) NOT DETECTED 04/05/21 15:25 Nasal B.pertussis DNA PCR NOT DETECTED 04/05/21 15:25 Nasal C.pneumoniae (PCR) NOT DETECTED 04/05/21 15:25 Chet Human Metapneumo PCR NOT DETECTED 04/05/21 15:25 Nasal M.pneumoniae (PCR) NOT DETECTED 04/05/21 15:25 Nasal SARS-CoV-2 (PCR) NOT DETECTED 04/05/21 15:25 Sepsis Event Note (H) - Evaluation Current Stage of Sepsis: Ruled out ABX Reporting Has patient been on IV antibiotics over the past 48 hours?: No Current Medications - Current Medications Current Medications: Active Medications Acetaminophen (Acetaminophen 325 Mg Tablet) 650 mg PO Q4HR PRN PRN Reason: Pain 1 to 4 Last Admin: 04/09/21 20:38 Dose: 650 mg Documented by: Aspirin (Aspirin Chew 81 Mg Tablet) 81 mg PO DAILY [facility] Last Admin: 04/10/21 07:55 Dose: 81 mg Documented by: Atorvastatin Calcium (Atorvastatin 40 Mg Tablet) 40 mg PO DAILY [facility] Last Admin: 04/10/21 07:54 Dose: 40 mg Documented by: Docusate Sodium (Docusate Sodium 250 Mg Capsule) 250 - 500 mg PO DAILY [facility] Last Admin: 04/10/21 07:53 Dose: 250 mg Documented by: Duloxetine HCl (Duloxetine 30 Mg Capsule) 30 mg PO DAILY [facility] Last Admin: 04/10/21 07:54 Dose: 30 mg Documented by: Enoxaparin Sodium (Enoxaparin 40 Mg/0.4 Ml Syringe) 40 mg SUBQ DAILY [facility] Last Admin: 04/10/21 07:59 Dose: 40 mg Documented by: Guaifenesin (Guaifenesin 600 Mg Tablet) 600 mg PO BID [facility] Last Admin: 04/10/21 07:54 Dose: 600 mg Documented by: Latanoprost (Latanoprost 0.005% Ophth Drops) 1 drops EACHEYE QPM [facility] Last Admin: 04/09/21 20:37 Dose: 1 drops Documented by: Levothyroxine Sodium (Levothyroxine 25 Mcg Tablet) 50 mcg PO QDAC [facility] Last Admin: 04/10/21 06:55 Dose: 50 mcg Documented by: Liothyronine Sodium (Liothyronine 5 Mcg Tablet) 5 mcg PO DAILY [facility] Last Admin: 04/10/21 07:55 Dose: 5 mcg Documented by: Lisinopril (Lisinopril 20 Mg Tablet) 20 mg PO DAILY [facility] Last Admin: 04/10/21 07:54 Dose: 20 mg Documented by: Lorazepam (Lorazepam 0.5 Mg Tablet) 0.5 mg PO QPM PRN PRN Reason: Insomnia Last Admin: 04/09/21 20:38 Dose: 0.5 mg Documented by: Ondansetron HCl (Ondansetron 4 Mg/2 Ml Vial) 4 mg IVP Q6HR PRN PRN Reason: Nausea / Vomiting Oxycodone HCl (Oxycodone 5 Mg Tablet) 5 mg PO Q6HR PRN PRN Reason: PAIN Last Admin: 04/09/21 04:27 Dose: 5 mg Documented by: Polyethylene Glycol (Polyethylene Glycol 3350 17 Gm Packet) 17 gm PO DAILY [facility] Last Admin: 04/10/21 07:59 Dose: Not Given Documented by: Saccharomyces Boulardii (Saccharomyces Boulardii 250 Mg Capsule) 250 mg PO BIDW M [facility] Last Admin: 04/10/21 07:53 Dose: 250 mg Documented by: Senna (Senna 8.6 Mg Tablet) 8.6 - 17.2 mg PO DAILY [facility] Last Admin: 04/10/21 07:53 Dose: 8.6 mg Documented by: Sodium Chloride (Sodium Chloride Flush 0.9% 10 Ml Syringe) 10 ml IVP PRN PRN PRN Reason: NEEDED PER PROVIDER ORDERS Last Admin: 04/07/21 06:23 Dose: 10 ml Documented by: Sodium Chloride (Sodium Chloride Flush 0.9% 10 Ml Syringe) 10 ml IVP 0100,0900,1700 [facility] Last Admin: 04/10/21 08:00 Dose: Not Given Documented by: Bisacodyl Supp [Dulcolax Supp] 10 mg [place] DAILY PRN 03/18/21 DULoxetine [Cymbalta] 30 mg PO DAILY 03/18/21 Esomeprazole Magnesium [Nexium 24Hr] 20 mg PO DAILY 03/18/21 Levothyroxine Sodium [Levothyroxine] 50 mcg PO DAILY 03/18/21 Liothyronine [Cytomel] 5 mcg PO DAILY 03/18/21 Sennosides/Docusate Sodium [Senna Plus 8.6-50 mg Tablet] 1 tab PO BID PRN 03/18/21 LORazepam [Ativan] 0.5 mg PO DAILY PM 04/05/21 Latanoprost 0.005% Ophth Drops [Xalatan Ophth Drops] 1 drops EACHEYE DAILY PM 04/05/21 Lisinopril [Zestril] 20 mg PO DAILY 04/05/21
[2021-04-10 12:59] LABS: B. PARAPERTUSSIS- RESP PCR PAN NOT DETECTED; B. PERTUSSIS- RESP PCR PANEL NOT DETECTED; C. PNEUMONIAE- RESP PCR PANEL NOT DETECTED; CORONAVIRUS 229E-RESP PCR NOT DETECTED; CORONAVIRUS HKU1-RESP PCR NOT DETECTED; CORONAVIRUS NL63-RESP PCR NOT DETECTED; CORONAVIRUS OC43-RESP PCR NOT DETECTED; HUMAN METAPNEUMOVIRUS NOT DETECTED; INFLUENZA A- RESP PCR PANEL NOT DETECTED; INFLUENZA B - RESP PCR PANEL NOT DETECTED; M. PNEUMONIAE- RESP PCR PANEL NOT DETECTED; PARAINFLUENZA VIRUS 1 NOT DETECTED; PARAINFLUENZA VIRUS 2 NOT DETECTED; PARAINFLUENZA VIRUS 3 NOT DETECTED; PARAINFLUENZA VIRUS 4 NOT DETECTED; RHINOVIRUS/ENTEROVIRUS NOT DETECTED; RSV- RESP PCR PANEL NOT DETECTED; SARS-CoV-2 -RESP PCR PANEL NOT DETECTED
[2021-04-10] MEDS: oxyCODONE 5 MG TABLET PO PRN (18:39)
[2021-04-10] MEDS: LATANOPROST 0.005% OPHTH DROPS EACHEYE SCH (20:58)
[2021-04-11] MEDS: LORazepam 0.5 MG TABLET PO PRN (00:01)
[2021-04-11] MEDS: SODIUM CHLORIDE FLUSH 0.9% 10 ML SYRINGE IVP SCH ×2 (07:26→09:22)
--- NOTE | 2021-04-11 08:07 | Discharge Plan ---
Discharge Plan for SNF / [facility] - Discharge Plan And Transition Orders Problem Reviewed?: Yes Disposition: 50 Hospice/Home DC/Xfer Condition: Serious Allergies and Adverse Reactions: Allergies Allergy/AdvReac Type Severity Reaction Status Date / Time carvedilol Allergy Unknown Verified 04/05/21 14:24 celecoxib [From Celebrex] Allergy Emesis Verified 04/05/21 14:24 erythromycin base Allergy Emesis Verified 04/05/21 14:24 sucralfate [From Carafate] Allergy Unknown Verified 04/05/21 14:24 trazodone Allergy Unknown Verified 04/05/21 14:24 Health Concerns: The patient was admitted for hypoxia secondary to aspiration pneumonia. She was treated with Unasyn IV initially. She was seen by speech therapy who recommended a dysphagia advanced diet with thin liquids. Her oxygen requirements did improve but she still continued to require 1 to 2 L of oxygen. She was hydrated with normal saline given she had metabolic alkalosis. After 2 days of treatment, the patient decided that she wanted to focus on her comfort only. She declined antibiotics and her preference was to go back to [facility]. She did want a palliative and hospice referral, and hospice consult. We did stop her antibiotics and we decreased some of her home medications per her request. She will now be discharged back to [facility] and she is followed up with hospice care. I have provided her with a prescription for morphine to take as needed for pain or dyspnea. Plan of Treatment: The goal is to focus on her comfort. She has a POLST form which reflects this. I have provided her a prescription for morphine to take as needed. She will not be prescribed antibiotics per her request. hospice care is recommended. Care Goals: quality of life, comfortable care, and hospice care Assessment: pt was alert and oriented plus 4. she choose the hospice care, focus on comfort care, and she understood the care plan. Today she is comfortable and at sleep. - SNF / [facility] Transition Orders Admit to (Facility): [facility] Under the care of (Name): Dr. Davis Discharge Diagnosis: aspiration pneumonia, severe malnutrition, dysphagia, comfort measure only status, HTN, hx of CAD, hypothyroidism, encounter of hospice care. Medicare Certification Statement: I certify that Post Hospital care home care is medically necessary on a continuing basis for any of the conditions for which she/he is receiving care during hospitalization. Notify PCP of admission and forward orders to primary provider for signature. Other Notification Orders: Call PCP immediately if patient develops dyspnea, chest pain/tightness or edema. Additional Bowel Program Orders: If no BM after 2 days, nurse may give M.O.M. 30ml PO PRN and/or ducolax Supp 1 [place] and/or CARLEE 250mg P.O., and/or senna 1-2 tabs PO. On day 3 nurse may give repeat above order until residents constipation is resolved. Treatments & Other Orders: pt may followup with hospice care Medication Orders: PLEASE REFER TO THE DISCHARGE MEDICATION LIST. Insulin Orders?: No - Medications New Prescriptions: Morphine Sulfate [Morphine Sulf Oral (Roxanol)] 5 mg PO Q4H PRN #30 ml PRN Reason: Pain/Dyspnea - Diet Type: Geriatric Texture: Dysphagia mech Liquids: Thin
--- NOTE | 2021-04-11 08:16 | DISCHARGE SUMMARY ---
Discharge Summary Admit Date: 04/05/21 Discharge Date: 04/11/21 Discharging Provider: Cullen Mejia Condition at Discharge: Serious Discharge Disposition: 50 Hospice/Home DC/Xfer Discharge Facility Name: [facility] - DIAGNOSES Discharge Diagnoses with Status of Each Condition: (1) Aspiration pneumonia pt initially was treated with antibiotics but it has been discontinued per her request. Patient is alert and orientated +4 (2) Comfort measures only status Patient is alert and orientated +4 . She choose to decline to eat and drink. The goal is comfort and we have discontinued most of her medications per her request. Hospice evaluate her today and appreciate their input, accept pt for hospice care. (3) Severe malnutrition pt has hx of severe malnutrition. pt was consulted with bell clerk. But She has made it clear she does not want to eat or drink and her goal is comfort. hospice care consulted for pt. (4) HTN (hypertension) We are only continuing lisinopril for the time being as she wanted to be on one antihypertensive. Dr. Colmenares discussed pt's home meds with pt in detail and all follow her wishes. (5) Hx of coronary artery disease We have discontinued her home medications per her request. (6) Hypothyroidism We are continuing her thyroid medications for the time being per pt's request. (7)encounter of hospice care Patient is alert and orientated +4 on today. She continue to decline to eat and drink. Hospice provider consulted for patient. [facility] patient for hosp[facility] care. D/C patient and followup with hospice care. - HPI History of Present Illness: This is a 86-year-old woman with A past medical history Significant for severe malnutrition, congestive heart failure, chronic pain, coronary artery disease, acid reflux, hypertension, hypothyroidism, previous NSTEMI, osteoporosis, who present ER complain of dysphagia. Pt report she can not swallow since today lunch. she report she had lots of cough since that. Patient reported she always has swallowing issue and cough. Nurse Can did bed side swallowing test, pt pass through but with mild cough. we will offer pt Dysphagia mechanical diet now. pt was noted to have significantly hypoxic with 70% sats on room air prior to pt arrival. Patient denies fever, chill, shortness of breath, chest pain, headache, focal neuro deficit, unilateral weakness. she report she got Covid 19 vaccinated, and her Covid 19 test is negative in ER. Chest x-ray show early pneumonia, concern of aspiration. In routine laboratory tests that show patient had high carbon dioxide. In the ER, patient was afebrile but the patient needed 4 L oxygen support to have 96% sats. Patient is alert orientated +4. Discussed the care goal with the patient, patient clearly stated she want DNR/DNI, nurse Juan José is at the bedside at the time. pt state her friend Anastasia Baker is her DPOA. - HOSPITAL COURSE Hospital Course: Patient was admitted for dysphagia with cough. Patient was found to have aspiration pneumonia. Patient was treated with antibiotics for aspiration pneumonia. Patient is alert and orientated +4. Patient clearly state and continue to choose to decline eat and drink any more. she request comfort care and hospice care. - ALLERGIES Allergies/Adverse Reactions: Allergies Allergy/AdvReac Type Severity Reaction Status Date / Time carvedilol Allergy Unknown Verified 04/05/21 14:24 celecoxib [From Celebrex] Allergy Emesis Verified 04/05/21 14:24 erythromycin base Allergy Emesis Verified 04/05/21 14:24 sucralfate [From Carafate] Allergy Unknown Verified 04/05/21 14:24 trazodone Allergy Unknown Verified 04/05/21 14:24 - MEDICATIONS Home Medications: Ambulatory Orders Medication Instructions Recorded Confirmed Bisacodyl Supp [Dulcolax Supp] 10 mg ND DAILY PRN 03/18/21 04/05/21 DULoxetine [Cymbalta] 30 mg PO DAILY 03/18/21 04/05/21 Esomeprazole Magnesium [Nexium 20 mg PO DAILY 03/18/21 04/05/21 24Hr] Levothyroxine Sodium 50 mcg PO DAILY 03/18/21 04/05/21 [Levothyroxine] Liothyronine [Cytomel] 5 mcg PO DAILY 03/18/21 04/05/21 Sennosides/Docusate Sodium [Senna 1 tab PO BID PRN 03/18/21 04/05/21 Plus 8.6-50 mg Tablet] LORazepam [Ativan] 0.5 mg PO DAILY PM 04/05/21 04/05/21 Latanoprost 0.005% Ophth Drops 1 drops EACHEYE DAILY PM 04/05/21 04/05/21 [Xalatan Ophth Drops] Lisinopril [Zestril] 20 mg PO DAILY 04/05/21 04/05/21 Morphine Sulfate [Morphine Sulf 5 mg PO Q4H PRN #30 ml 04/08/21 Oral (Roxanol)] - LABS Result Diagrams: 04/08/21 05:14 04/08/21 05:14 - SEPSIS Current Stage of Sepsis: Ruled out
[2021-04-11 08:31] VITALS: BP 169/81
[2021-04-11] MEDS: ASPIRIN CHEW 81 MG TABLET PO SCH (09:16)
[2021-04-11] MEDS: LEVOTHYROXINE 25 MCG TABLET PO SCH (09:16)
[2021-04-11] MEDS: DULoxetine 30 MG CAPSULE PO SCH (09:16)
[2021-04-11] MEDS: ATORVASTATIN 40 MG TABLET PO SCH (09:16)
[2021-04-11] MEDS: LIOTHYRONINE 5 MCG TABLET PO SCH (09:17)
[2021-04-11] MEDS: ENOXAPARIN 40 MG/0.4 ML SYRINGE SUBQ SCH (09:20)
[2021-04-11] MEDS: SACCHAROMYCES BOULARDII 250 MG CAPSULE PO SCH (09:20)
[2021-04-11] MEDS: guaiFENesin 600 MG TABLET PO SCH (09:20)
[2021-04-11] MEDS: DOCUSATE SODIUM 250 MG CAPSULE PO SCH (09:20)
[2021-04-11] MEDS: lisinopriL 20 MG TABLET PO SCH (09:21)
[2021-04-11] MEDS: SENNA 8.6 MG TABLET PO SCH (09:21)
[2021-04-11] MEDS: polyethylene glycoL 3350 17 GM PACKET PO SCH (09:21)
== END 2021-04-11 10:09 | disposition hospice, home (50) | DRG 189 ==
LOC: EDUNIT# → ED 13:50 → MS2 15:41
PROVIDERS: ADMIT Nurse Practitioner Gerontology; ATTEND Internal Medicine
DX: J96.01 Acute respiratory failure with hypoxia (principal); J69.0 Pneumonitis due to inhalation of food and vomit; R09.02 Hypoxemia; E43 Unspecified severe protein-calorie malnutrition; I10 Essential (primary) hypertension; Z68.1 Body mass index [BMI] 19.9 or less, adult; R64 Cachexia; E87.3 Alkalosis; I25.10 Atherosclerotic heart disease of native coronary artery without angina pectoris; E03.9 Hypothyroidism, unspecified; E86.0 Dehydration; K21.9 Gastro-esophageal reflux disease without esophagitis; I25.2 Old myocardial infarction; M81.0 Age-related osteoporosis without current pathological fracture; R13.10 Dysphagia, unspecified; Z20.822 Contact with and (suspected) exposure to COVID-19; Z66 Do not resuscitate; I11.0 Hypertensive heart disease with heart failure; I50.9 Heart failure, unspecified; F32.9 Major depressive disorder, single episode, unspecified; Z79.82 Long term (current) use of aspirin; Z79.899 Other long term (current) drug therapy; Z51.5 Encounter for palliative care
CPT/HCPCS: 36415; 71045; 80048; 84443; 85025; 86140; 87631; 92610; 93306; 99283; 99285; A9270; J1650; 0202U